=== PATIENT | male | born 1975 ===

== ENCOUNTER 2022-01-28 12:20 | Inpatient (IN) | payer SELFPAY ==
[2022-01-28] MEDS ORDERED: PIPERACIL/TAZOBACTA 4.5/NS 100 4.5 GM/100 ML VIAL IV ONE (23:07)
[2022-01-28] MEDS ORDERED: SODIUM CHLORIDE 0.9% 1000 ML IV SOLN IV ONE (23:07)
[2022-01-28] MEDS ORDERED: VANCOMYCIN 1,500 MG in SODIUM CHLORIDE 0.9% 500 ML 500 ML IV ONE (23:07)
--- NOTE | 2022-01-28 23:33 | Emergency Department Report ---
- General Chief complaint: Skin/Abscess/Foreign Body Stated complaint: BOIL BETWEEN LEGS Time Seen by Provider: 01/28/22 23:06 Source: patient Mode of arrival: Ambulatory Limitations: No Limitations - History of Present Illness Initial comments: 46-year-old diabetic male presents emerged department complaining of a 3-day history of progressively worsening right groin pain and swelling which is progressed down to his testicular region of unknown etiology pain has progressively worsened and become dull and throbbing worse with palpation and range of motion. Area is red and he has noticed some form of discharge in the right groin crease area close to the testicular sac border. Reports no fever, chills, sweats. No chest pain palpitations, no nausea, no vomiting. Reports h aving some similar episodes in the past but not to this extent Severity: moderate Quality: aching, dull Consistency: constant Improves with: none Worsens with: none Context: none Associated symptoms: denies other symptoms Treatments Prior to Arrival: none - Related Data Allergies Allergy/AdvReac Type Severity Reaction Status Date / Time No Known Allergies Allergy Verified 01/28/22 23:14 Abscess Boil HPI - HPI Chief Complaint: Skin/Abscess/Foreign Body Stated Complaint: BOIL BETWEEN LEGS Time Seen by Provider: 01/28/22 23:06 Allergies/Adverse Reactions: Allergies Allergy/AdvReac Type Severity Reaction Status Date / Time No Known Allergies Allergy Verified 01/28/22 23:14 ED Review of Systems ROS: Stated complaint: BOIL BETWEEN LEGS Other details as noted in HPI Comment: All other systems reviewed and negative ED Physical Exam - General Limitations: No Limitations General appearance: alert, in no apparent distress - Head Head exam: Present: atraumatic, normocephalic - Eye Eye exam: Present: normal appearance, PERRL, EOMI - ENT ENT exam: Present: mucous membranes moist - Neck Neck exam: Present: normal inspection - Respiratory Respiratory exam: Present: normal lung sounds bilaterally. Absent: respiratory distress - Cardiovascular Cardiovascular Exam: Present: regular rate, normal rhythm. Absent: systolic murmur, diastolic murmur, rubs, gallop - GI/Abdominal GI/Abdominal exam: Present: soft, tenderness, normal bowel sounds - Rectal Rectal exam: Present: deferred - exam: Present: testicular tenderness, scrotal swelling External exam: Present: erythema - Expanded Exam Expanded image: 1 - Cellulitis swelling tenderness to this region with mass palpated in the area of the inguinal and perineal region. There is AN OS or fistula near the right perineal region with more aggravating cellulitis. Possible early Joie's - Extremities Exam Extremities exam: Present: normal inspection - Back Exam Back exam: Present: normal inspection - Neurological Exam Neurological exam: Present: alert, oriented X3 - Psychiatric Psychiatric exam: Present: normal affect, normal mood - Skin Skin exam: Present: warm, dry, intact, normal color. Absent: rash ED Course Vital Signs 01/28/22 16:04 Temperature 98.1 F Pulse Rate 109 H Respiratory 18 Rate Blood Pressure 175/117 [Right] O2 Sat by Pulse 100 Oximetry - Consultations Consultation #1: 01/28/22 23:32 Case was discussed with attending Dr. Peñaloza who had [id number] with Mr. López and evaluated the wound with his hands he agrees with the plan to move forward with sepsis protocol and CT scan as well as antibiotic therapy Critical care attestation.: If time is entered above; I have spent that time in minutes in the direct care of this critically ill patient, excluding procedure time. ED Disposition Condition: Stable Referrals: PRIMARY CARE, [Primary Care Provider] - 3-5 Days
[2022-01-28] MEDS ORDERED: VANCOMYCIN PHARMACY TO DOSE IV SCH (23:45)
[2022-01-28 23:50] LABS: Hematocrit 42.9 % (35.5-45.6); Hemoglobin 14.9 gm/dl (11.8-15.2); Mean Corpuscular HGB Conc 35 % (32-34); Mean Corpuscular Volume 81 fl (84-94); Platelet Count 208 K/mm3 (140-440); Red Blood Count 5.29 M/mm3 (3.65-5.03); Red Cell Distribution Width 13.7 % (13.2-15.2)
[2022-01-29 00:07] LABS: Alanine Aminotransferase 11 units/L (7-56); Albumin 3.7 g/dL (3.9-5); BUN/Creatinine Ratio 13; Blood Urea Nitrogen 10 mg/dL (9-20); Hemolysis Index 6
[2022-01-29] MEDS: HYDROmorphone 1 MG/1 ML INJ IV PRN ×2 (00:12→06:28)
--- NOTE | 2022-01-29 00:51 | Cat Scan Report ---
CT ABDOMEN AND PELVIS WITH CONTRAST INDICATION / CLINICAL INFORMATION: Groin celluitis and swelling on RIGHT side. TECHNIQUE: Axial CT images were obtained through the abdomen and pelvis after 100 cc Omnipaque [address] scans at this location are performed using CT dose reduction for ALARA by means of automated exposure control. COMPARISON: None available. FINDINGS: LOWER CHEST: No significant abnormality. LIVER: Generalized steatosis without other significant abnormalities. GALLBLADDER: No significant abnormality. BILE DUCTS: No significant abnormality. PANCREAS: No significant abnormality. SPLEEN: No significant abnormality. ADRENALS: No significant abnormality. RIGHT KIDNEY/URETER: A simple cyst seen medially along the mid pole measures up to 9 mm. No other sig nificant abnormality. LEFT KIDNEY/URETER: There is a simple cyst located medially along the upper pole measuring up to 1.2 cm. No other significant abnormality. STOMACH/SMALL BOWEL: No significant abnormality. COLON: No significant abnormality. APPENDIX: No significant abnormality. PERITONEUM: No free fluid. No free air. No fluid collection. LYMPH NODES: Likely reactive right inguinal nodes are seen measuring up to 1.2 cm in short axis dimen alis on image 186 of series 2. No other significant adenopathy. VASCULATURE: No significant abnormality. URINARY BLADDER: No significant abnormality. REPRODUCTIVE ORGANS: Scrotal edema is noted with bilateral hydroceles. No other significant abnormali ty. ADDITIONAL FINDINGS: Moderate edema is seen along the right inguinal subcutaneous tissues extending i nto the scrotum and perineum without associated soft tissue gas or an organized fluid collection/absc ess. BONES: No acute findings. There is mild thoracolumbar spondylosis. IMPRESSION: 1. Right inguinal, scrotal and perineal cellulitis without identification of an associated complicati on. 2. Additional findings as above. Signer Name: Claudio Castro MD Signed: 01/29/2022 12:46 AM Workstation Name: [id number]
[2022-01-29 02:20] LABS: Band Neutrophils # (Manual) 0.4 K/mm3; Basophils % (Manual) 0 % (0.0-1.8); Eosinophils % (Manual) 0 % (0.0-4.3); RBC Morphology Normal; Total Cells Counted 100
[2022-01-29 02:21] LABS: Platelet Estimate Consistent w Auto
[2022-01-29] MEDS ORDERED: DEXTROSE 50% IN WATER (25GM) 50 ML SYRINGE IV PRN (03:18)
[2022-01-29] MEDS ORDERED: ONDANSETRON 4 MG/2 ML INJ IV PRN (03:18)
[2022-01-29] MEDS ORDERED: MORPHINE 4 MG/1 ML INJ IV PRN (03:18)
[2022-01-29] MEDS ORDERED: MAGNESIUM HYDROXIDE (MOM) ORAL LIQD UDC PO PRN (03:18)
[2022-01-29] MEDS ORDERED: SODIUM CHLORIDE 0.9% 1000 ML 1,000 ML IV SCH (03:30)
--- NOTE | 2022-01-29 03:36 | History and Physical Report ---
History of Present Illness Date of examination: 01/29/22 Date of admission: 01/29/2022 Chief complaint: Right groin pain History of present illness: 46-year-old male with known history of diabetes mellitus presenting to the emergency room today complaining of swelling redness and pain in the right groin which has been ongoing for the past 3 days. Pain is said to be dull and throbbing. He denies any fall and denies any injury to the groin. Patient denies any fever or chills, no chest pain or shortness of breath, no nausea vomiting and no abdominal pain. Patient admits to having similar episodes in the past but was not this severe. Work-up in the emergency room today, significant findings on the labs includes leukocytosis of 21.3. Blood glucose of 278. CT of the abdomen and pelvis reveals right inguinal, scrotal and perineal cellulitis without identification of an associated complication. Patient has been commenced on empiric IV antibiotics for cellulitis. Past History Past Medical History: diabetes Past Surgical History: No surgical history Social history: no significant social history Family history: no significant family history Medications and Allergies Allergies Allergy/AdvReac Type Severity Reaction Status Date / Time No Known Allergies Allergy Verified 01/28/22 23:14 Active Meds: Active Medications Acetaminophen (Acetaminophen 325 Mg Tab) 650 mg PO Q4H PRN PRN Reason: Pain MILD(1-3)/Fever >100.5/RODRIGUES Dextrose (Dextrose 50% In Water (25gm) 50 Ml Syringe) 50 ml IV Q30MIN PRN; Protocol PRN Reason: Hypoglycemia Hydromorphone HCl (Hydromorphone 1 Mg/1 Ml Inj) 0.25 mg IV Q4H PRN PRN Reason: Pain, Moderate (4-6) Last Admin: 01/29/22 00:12 Dose: 0.25 mg Sodium Chloride (Nacl 0.9% 1000 Ml) 1,000 mls @ 125 mls/hr IV DIRECT STEPHANIE Insulin Human Regular (Insulin Regular, Human 100 Units/1 Ml) 0 units SUB-Q ACHS STEPHANIE; Protocol Magnesium Hydroxide (Magnesium Hydroxide (Mom) Oral Liqd Udc) 30 ml PO Q4H PRN PRN Reason: Constipation Morphine Sulfate (Morphine 2 Mg/1 Ml Inj) 2 mg IV Q4H PRN PRN Reason: Pain, Moderate (4-6) Morphine Sulfate (Morphine 4 Mg/1 Ml Inj) 4 mg IV Q4H PRN PRN Reason: Pain , Severe (7-10) Ondansetron HCl (Ondansetron 4 Mg/2 Ml Inj) 4 mg IV Q8H PRN PRN Reason: Nausea And Vomiting Sodium Chloride (Sodium Chloride 0.9% 10 Ml Flush Syringe) 10 ml IV BID STEPHANIE Sodium Chloride (Sodium Chloride 0.9% 10 Ml Flush Syringe) 10 ml IV PRN PRN PRN Reason: LINE FLUSH Review of Systems Constitutional: no fever, no chills Ears, nose, mouth and throat: no nasal congestion, no sore throat Cardiovascular: no chest pain, no palpitations Respiratory: no cough, no shortness of breath Gastrointestinal: no abdominal pain, no nausea, no vomiting, no diarrhea Genitourinary Male: no dysuria, no hematuria, no flank pain, no nocturia Musculoskeletal: no neck pain, no low back pain Integumentary: no rash, no pruritis Neurological: no headaches, no confusion Psychiatric: no anxiety, no depression Endocrine: no polydipsia, no polyuria, no nocturia Exam - Constitutional Vitals: Temp Pulse Resp BP Pulse Ox 98.1 F 109 H 18 175/117 100 01/28/22 16:04 01/28/22 16:04 01/29/22 00:12 01/28/22 16:04 01/28/22 16:04 General appearance: Present: no acute distress, well-nourished - EENT Eyes: Present: PERRL, EOM intact. Absent: scleral icterus ENT: hearing intact, clear oral mucosa, dentition normal - Neck Neck: Present: supple, normal ROM - Respiratory Respiratory effort: normal Respiratory: bilateral: CTA - Cardiovascular Rhythm: regular Heart Sounds: Present: S1 & S2. Absent: gallop, systolic murmur, diastolic murmur, rub, click - Extremities Extremities: no ischemia, pulses intact, pulses symmetrical, No edema, normal temperature, normal color, Full ROM Peripheral Pulses: within normal limits - Abdominal General gastrointestinal: Present: soft, non-tender, non-distended, normal bowel sounds. Absent: mass Male genitourinary: Present: tender (Redness and Tenderness in right groin,mildly warm to torch.) - Integumentary Integumentary: Present: clear, warm, dry, normal turgor. Absent: rash - Musculoskeletal Musculoskeletal: strength equal bilaterally - Psychiatric Psychiatric: appropriate mood/affect, intact judgment & insight, memory intact, cooperative - Neurologic Neurologic: CNII-XII intact, no focal deficits, moves all extremities Results - Labs CBC & Chem 7: 01/28/22 23:18 01/28/22 23:18 Labs: Abnormal lab results 01/28/22 01/28/22 Range/Units 23:18 23:18 WBC 21.3 H (4.5-11.0) K/mm3 RBC 5.29 H (3.65-5.03) M/mm3 MCV 81 L (84-94) fl MCHC 35 H (32-34) % Seg Neuts % (Manual) 88.0 H (40.0-70.0) % Lymphocytes % (Manual) 6.0 L (13.4-35.0) % Seg Neutrophils # Man 18.7 H (1.8-7.7) K/mm3 Monocytes # (Manual) 0.9 H (0.0-0.8) K/mm3 Sodium 134 L (137-145) mmol/L Carbon Dioxide 19 L (22-30) mmol/L Glucose 278 H (75-100) mg/dL Alkaline Phosphatase 131 H (35-129) units/L Albumin 3.7 L (3.9-5) g/dL Assessment and Plan - Patient Problems (1) Cellulitis of right groin Current Visit: Yes Status: Acute Plan to address problem: Patient placed on empiric IV antibiotics. Will place consult to general surgery to evaluate for a possible developing abscess. (2) Diabetes mellitus Current Visit: Yes Status: Acute Plan to address problem: Patient placed on sliding scale insulin. Will monitor Accu-Cheks. (3) DVT prophylaxis Current Visit: Yes Status: Acute Plan to address problem: Patient placed on subcutaneous heparin. (4) Full code status Current Visit: Yes Status: Acute Plan to address problem: Patient is full code.
[2022-01-29] MEDS: hydrALAZINE 20 MG/1 ML INJ IV PRN ×2 (06:01→19:23)
[2022-01-29] MEDS: INSULIN REGULAR, HUMAN 100 UNITS/1 ML SUB-Q SCH ×5 (08:00→21:27)
--- NOTE | 2022-01-29 09:03 | Consultation ---
History of Present Illness Consult date: 01/29/22 Reason for consult: abdominal pain - History of present illness History of present illness: This is a 46-year-old gentleman with complaints of about a weeks duration of right groin pain and swelling. He denies any pre-existing swelling in the area he is not aware of any hernias in the area. Patient is admitted with cellulitis to the right scrotum right groin area there is a small open area in the crease between the scrotum and the thigh. Examination at this time failed to show a abscess in the subcutaneous tissue. He is very tender in this area however and a hernia with incarceration could be missed at this time. Recommend a CT scan abdomen pelvis we will continue to follow patient with you. Past History Past Medical History: diabetes Past Surgical History: No surgical history Social history: no significant social history Family history: no significant family history Medications and Allergies Allergies Allergy/AdvReac Type Severity Reaction Status Date / Time No Known Allergies Allergy Verified 01/28/22 23:14 Active Meds: Active Medications Acetaminophen (Acetaminophen 325 Mg Tab) 650 mg PO Q4H PRN PRN Reason: Pain MILD(1-3)/Fever >100.5/RODRIGUES Dextrose (Dextrose 50% In Water (25gm) 50 Ml Syringe) 50 ml IV Q30MIN PRN; Protocol PRN Reason: Hypoglycemia Heparin Sodium (Porcine) (Heparin 5,000 Unit/1 Ml Vial) 5,000 unit SUB-Q Q8HR STEPHANIE Hydralazine HCl (Hydralazine 20 Mg/1 Ml Inj) 10 mg IV Q4HR PRN PRN Reason: elevated blood pressure Last Admin: 01/29/22 06:01 Dose: 10 mg Hydromorphone HCl (Hydromorphone 1 Mg/1 Ml Inj) 0.25 mg IV Q4H PRN PRN Reason: Pain, Moderate (4-6) Last Admin: 01/29/22 06:28 Dose: 0.25 mg Sodium Chloride (Nacl 0.9% 1000 Ml) 1,000 mls @ 125 mls/hr IV DIRECT STEPHANIE Vancomycin HCl 1,500 mg/ (Sodium Chloride) 530 mls @ 333.333 mls/hr IV Q12H STEPHANIE Insulin Human Regular (Insulin Regular, Human 100 Units/1 Ml) 0 units SUB-Q ACHS STEPHANIE; Protocol Magnesium Hydroxide (Magnesium Hydroxide (Mom) Oral Liqd Udc) 30 ml PO Q4H PRN PRN Reason: Constipation Morphine Sulfate (Morphine 2 Mg/1 Ml Inj) 2 mg IV Q4H PRN PRN Reason: Pain, Moderate (4-6) Morphine Sulfate (Morphine 4 Mg/1 Ml Inj) 4 mg IV Q4H PRN PRN Reason: Pain , Severe (7-10) Ondansetron HCl (Ondansetron 4 Mg/2 Ml Inj) 4 mg IV Q8H PRN PRN Reason: Nausea And Vomiting Sodium Chloride (Sodium Chloride 0.9% 10 Ml Flush Syringe) 10 ml IV BID STEPHANIE Sodium Chloride (Sodium Chloride 0.9% 10 Ml Flush Syringe) 10 ml IV PRN PRN PRN Reason: LINE FLUSH Exam Vital Signs Temp Pulse Resp BP Pulse Ox 98.1 F 109 H 18 175/117 100 01/28/22 16:04 01/28/22 16:04 01/28/22 16:04 01/28/22 16:04 01/28/22 16:04 - General physical appearance Positive: well developed, no distress - Neck Positive: no masses, no bruits, trachea midline - Respiratory Positive: normal expansion - Cardiovascular Rhythm: regular - Extremities Extremities: no ischemia, No edema - Abdomen Abdomen: Present: soft, tender, other (his is a 46-year-old gentleman with complaints of about a weeks duration of right groin pain and swelling. He denies any pre-existing swelling in the area he is not aware of any hernias in the area.) Results - Labs 01/28/22 23:18 01/28/22 23:18 Abnormal lab results 01/28/22 01/28/22 Range/Units 23:18 23:18 WBC 21.3 H (4.5-11.0) K/mm3 RBC 5.29 H (3.65-5.03) M/mm3 MCV 81 L (84-94) fl MCHC 35 H (32-34) % Seg Neuts % (Manual) 88.0 H (40.0-70.0) % Lymphocytes % (Manual) 6.0 L (13.4-35.0) % Seg Neutrophils # Man 18.7 H (1.8-7.7) K/mm3 Monocytes # (Manual) 0.9 H (0.0-0.8) K/mm3 Sodium 134 L (137-145) mmol/L Carbon Dioxide 19 L (22-30) mmol/L Glucose 278 H (75-100) mg/dL Alkaline Phosphatase 131 H (35-129) units/L Albumin 3.7 L (3.9-5) g/dL Diabetes panel 01/28/22 Range/Units 23:18 Sodium 134 L (137-145) mmol/L Potassium 4.0 (3.6-5.0) mmol/L Chloride 98.1 (98-107) mmol/L Carbon Dioxide 19 L (22-30) mmol/L BUN 10 (9-20) mg/dL Creatinine 0.8 (0.8-1.3) mg/dL Glucose 278 H (75-100) mg/dL Calcium 9.0 (8.4-10.2) mg/dL AST 9 (5-40) units/L ALT 11 (7-56) units/L Alkaline Phosphatase 131 H (35-129) units/L Total Protein 6.7 (6.3-8.2) g/dL Albumin 3.7 L (3.9-5) g/dL Calcium panel 01/28/22 Range/Units 23:18 Calcium 9.0 (8.4-10.2) mg/dL Albumin 3.7 L (3.9-5) g/dL Pituitary panel 01/28/22 Range/Units 23:18 Sodium 134 L (137-145) mmol/L Potassium 4.0 (3.6-5.0) mmol/L Chloride 98.1 (98-107) mmol/L Carbon Dioxide 19 L (22-30) mmol/L BUN 10 (9-20) mg/dL Creatinine 0.8 (0.8-1.3) mg/dL Glucose 278 H (75-100) mg/dL Calcium 9.0 (8.4-10.2) mg/dL Adrenal panel 01/28/22 Range/Units 23:18 Sodium 134 L (137-145) mmol/L Potassium 4.0 (3.6-5.0) mmol/L Chloride 98.1 (98-107) mmol/L Carbon Dioxide 19 L (22-30) mmol/L BUN 10 (9-20) mg/dL Creatinine 0.8 (0.8-1.3) mg/dL Glucose 278 H (75-100) mg/dL Calcium 9.0 (8.4-10.2) mg/dL Total Bilirubin 0.70 (0.1-1.2) mg/dL AST 9 (5-40) units/L ALT 11 (7-56) units/L Alkaline Phosphatase 131 H (35-129) units/L Total Protein 6.7 (6.3-8.2) g/dL Albumin 3.7 L (3.9-5) g/dL Assessment and Plan his is a 46-year-old gentleman with complaints of about a weeks duration of right groin pain and swelling. He denies any pre-existing swelling in the area he is not aware of any hernias in the area. Patient is admitted with cellulitis to the right scrotum right groin area there is a small open area in the crease between the scrotum and the thigh. Examination at this time failed to show a abscess in the subcutaneous tissue. He is very tender in this area however and a hernia with incarceration could be missed at this time. Recommend a CT scan abdomen pelvis we will continue to follow patient with you.
--- NOTE | 2022-01-29 11:10 | Cat Scan Report ---
CT abdomen pelvis w con INDICATION / CLINICAL INFORMATION: possible right inguinal abscess vs hernia OMNI 300 100 ML. TECHNIQUE: Axial CT images were obtained through the abdomen and pelvis after 100 cc of Omnipaque [address] scans at this location are performed using CT dose reduction for ALARA by means of automated exposure control. COMPARISON: CT from earlier same day. FINDINGS: LOWER CHEST: No significant abnormality LIVER: Diffuse steatosis. No focal lesion. GALLBLADDER/BILIARY TREE: No significant abnormality PANCREAS: No significant abnormality SPLEEN: No significant abnormality ADRENALS: No significant abnormality RIGHT KIDNEY / URETER: No significant abnormality LEFT KIDNEY / URETER: Small cyst at the upper pole. No acute abnormality. No hydronephrosis. URINARY BLADDER: No significant abnormality REPRODUCTIVE ORGANS: Prostate is unremarkable. STOMACH / BOWEL: Small bowel is normal in caliber. Colonic diverticulosis without evidence of diverti culitis. The appendix is normal in caliber. LYMPH NODES: Enlarged reactive lymph nodes in the right inguinal region again noted. No new or increa sing adenopathy. VASCULATURE: No significant abnormality. OTHER: The inferior perineum is excluded from view. Moderate inflammatory soft tissue stranding is se en within the right inguinal region and right perineum. This is incompletely imaged on current study. No soft tissue gas. No inguinal hernia is identified. SKELETAL SYSTEM: No acute osseous findings. IMPRESSION: 1. The perineum and scrotum are partially excluded on this study. Cellulitis of the visualized right inguinal region and perineum appear unchanged from CT from earlier same day. No soft tissue gas or or ganized collection visualized. 2. No new abnormality. Signer Name: Andrea Moonye MD Signed: 01/29/2022 11:05 AM Workstation Name: [id number]
--- NOTE | 2022-01-29 11:40 | Progress Note ---
Assessment and Plan Assessment and plan: 46-year-old male with known history of diabetes mellitus presenting to the emergency room complaining of swelling redness and pain in the right groin which has been ongoing for the past 3 days [employer]ALOG [employer]IAN. Work-up in the emergency room revealed a leukocytosis of 21.3. Blood glucose of 278. CT of the abdomen and pelvis reveals right inguinal, scrotal and perineal cellulitis without identification of an associated complication. Patient has been commenced on empiric IV antibiotics for cellulitis. The patient was admitted with diagnosis below: Sepsis. Patient meets criteria given the leukocytosis, tachycardia and diagnosis of cellulitis right groin cellulitis Diabetes mellitus type 2, uncontrolled 01/29/2022. Continue with IV antibiotics and await ID consultation. Continue tight glycemic control to promote wound healing. Follow-up CT scan of the abdomen and pelvis per surgery recommendations History Interval history: No new issues overnight Hospitalist Physical - Constitutional Vitals: Temp Pulse Resp BP Pulse Ox 98.1 F 94 H 18 160/93 96 01/29/22 05:45 01/29/22 07:07 01/29/22 07:07 01/29/22 07:07 01/29/22 07:07 General appearance: Present: no acute distress, well-nourished - EENT Eyes: Present: PERRL, EOM intact ENT: hearing intact, clear oral mucosa, dentition normal - Neck Neck: Present: supple, normal ROM - Respiratory Respiratory effort: normal Respiratory: bilateral: CTA - Cardiovascular Rhythm: regular Heart Sounds: Present: S1 & S2. Absent: gallop, rub - Extremities Extremities: no ischemia, No edema, Full ROM - Abdominal General gastrointestinal: soft, non-tender, non-distended, normal bowel sounds - Integumentary Integumentary: Present: clear, warm, dry - Neurologic Neurologic: CNII-XII intact, moves all extremities Results - Labs CBC & Chem 7: 01/28/22 23:18 01/28/22 23:18 Labs: Laboratory Last Values WBC 21.3 K/mm3 (4.5-11.0) H 01/28/22 23:18 RBC 5.29 M/mm3 (3.65-5.03) H 01/28/22 23:18 Hgb 14.9 gm/dl (11.8-15.2) 01/28/22 23:18 Hct 42.9 % (35.5-45.6) 01/28/22 23:18 MCV 81 fl (84-94) L 01/28/22 23:18 MCH 28 pg (28-32) 01/28/22 23:18 MCHC 35 % (32-34) H 01/28/22 23:18 RDW 13.7 % (13.2-15.2) 01/28/22 23:18 Plt Count 208 K/mm3 (140-440) 01/28/22 23:18 Add Manual Diff Complete 01/28/22 23:18 Total Counted 100 01/28/22 23:18 Seg Neuts % (Manual) 88.0 % (40.0-70.0) H 01/28/22 23:18 Band Neutrophils % 2.0 % 01/28/22 23:18 Lymphocytes % (Manual) 6.0 % (13.4-35.0) L 01/28/22 23:18 Reactive Lymphs % (Man) 0 % 01/28/22 23:18 Monocytes % (Manual) 4.0 % (0.0-7.3) 01/28/22 23:18 Eosinophils % (Manual) 0 % (0.0-4.3) 01/28/22 23:18 Basophils % (Manual) 0 % (0.0-1.8) 01/28/22 23:18 Metamyelocytes % 0 % 01/28/22 23:18 Myelocytes % 0 % 01/28/22 23:18 Promyelocytes % 0 % 01/28/22 23:18 Blast Cells % 0 % 01/28/22 23:18 Nucleated RBC % Not Reportable 01/28/22 23:18 Seg Neutrophils # Man 18.7 K/mm3 (1.8-7.7) H 01/28/22 23:18 Band Neutrophils # 0.4 K/mm3 01/28/22 23:18 Lymphocytes # (Manual) 1.3 K/mm3 (1.2-5.4) 01/28/22 23:18 Abs React Lymphs (Man) 0.0 K/mm3 01/28/22 23:18 Monocytes # (Manual) 0.9 K/mm3 (0.0-0.8) H 01/28/22 23:18 Eosinophils # (Manual) 0.0 K/mm3 (0.0-0.4) 01/28/22 23:18 Basophils # (Manual) 0.0 K/mm3 (0.0-0.1) 01/28/22 23:18 Metamyelocytes # 0.0 K/mm3 01/28/22 23:18 Myelocytes # 0.0 K/mm3 01/28/22 23:18 Promyelocytes # 0.0 K/mm3 01/28/22 23:18 Blast Cells # 0.0 K/mm3 01/28/22 23:18 WBC Morphology Not Reportable 01/28/22 23:18 Hypersegmented Neuts Not Reportable 01/28/22 23:18 Hyposegmented Neuts Not Reportable 01/28/22 23:18 Hypogranular Neuts Not Reportable 01/28/22 23:18 Smudge Cells Not Reportable 01/28/22 23:18 Toxic Granulation Not Reportable 01/28/22 23:18 Toxic Vacuolation Not Reportable 01/28/22 23:18 Dohle Bodies Not Reportable 01/28/22 23:18 Pelger-Huet Anomaly Not Reportable 01/28/22 23:18 Елена Rods Not Reportable 01/28/22 23:18 Platelet Estimate Consistent w auto 01/28/22 23:18 Clumped Platelets Not Reportable 01/28/22 23:18 Plt Clumps, EDTA Not Reportable 01/28/22 23:18 Large Platelets Not Reportable 01/28/22 23:18 Giant Platelets Not Reportable 01/28/22 23:18 Platelet Satelliting Not Reportable 01/28/22 23:18 Plt Morphology Comment Not Reportable 01/28/22 23:18 RBC Morphology Normal 01/28/22 23:18 Dimorphic RBCs Not Reportable 01/28/22 23:18 Polychromasia Not Reportable 01/28/22 23:18 Hypochromasia Not Reportable 01/28/22 23:18 Poikilocytosis Not Reportable 01/28/22 23:18 Anisocytosis Not Reportable 01/28/22 23:18 Microcytosis Not Reportable 01/28/22 23:18 Macrocytosis Not Reportable 01/28/22 23:18 Spherocytes Not Reportable 01/28/22 23:18 Pappenheimer Bodies Not Reportable 01/28/22 23:18 Sickle Cells Not Reportable 01/28/22 23:18 Target Cells Not Reportable 01/28/22 23:18 Tear Drop Cells Not Reportable 01/28/22 23:18 Ovalocytes Not Reportable 01/28/22 23:18 Helmet Cells Not Reportable 01/28/22 23:18 Huerta-Gregory Bodies Not Reportable 01/28/22 23:18 Napoleon Rings Not Reportable 01/28/22 23:18 Eden Cells Not Reportable 01/28/22 23:18 Bite Cells Not Reportable 01/28/22 23:18 Crenated Cell Not Reportable 01/28/22 23:18 Elliptocytes Not Reportable 01/28/22 23:18 Acanthocytes (Spur) Not Reportable 01/28/22 23:18 Rouleaux Not Reportable 01/28/22 23:18 Hemoglobin C Crystals Not Reportable 01/28/22 23:18 Schistocytes Not Reportable 01/28/22 23:18 Malaria parasites Not Reportable 01/28/22 23:18 Rod Bodies Not Reportable 01/28/22 23:18 Hem Pathologist Commnt No 01/28/22 23:18 Sodium 134 mmol/L (137-145) L 01/28/22 23:18 Potassium 4.0 mmol/L (3.6-5.0) 01/28/22 23:18 Chloride 98.1 mmol/L (98-107) 01/28/22 23:18 Carbon Dioxide 19 mmol/L (22-30) L 01/28/22 23:18 Anion Gap 21 mmol/L 01/28/22 23:18 BUN 10 mg/dL (9-20) 01/28/22 23:18 Creatinine 0.8 mg/dL (0.8-1.3) 01/28/22 23:18 Estimated GFR > 60 ml/min 01/28/22 23:18 BUN/Creatinine Ratio 13 % 01/28/22 23:18 Glucose 278 mg/dL (75-100) H 01/28/22 23:18 Lactic Acid 1.40 mmol/L (0.7-2.0) 01/29/22 02:37 Calcium 9.0 mg/dL (8.4-10.2) 01/28/22 23:18 Total Bilirubin 0.70 mg/dL (0.1-1.2) 01/28/22 23:18 AST 9 units/L (5-40) 01/28/22 23:18 ALT 11 units/L (7-56) 01/28/22 23:18 Alkaline Phosphatase 131 units/L (35-129) H 01/28/22 23:18 Total Protein 6.7 g/dL (6.3-8.2) 01/28/22 23:18 Albumin 3.7 g/dL (3.9-5) L 01/28/22 23:18 Albumin/Globulin Ratio 1.2 % 01/28/22 23:18 Microbiology: Microbiology 01/28/22 23:18 Peripheral/Venous Blood Culture - Preliminary Culture in Progress 01/28/22 23:18 Peripheral/Venous Blood Culture - Preliminary Culture in Progress [place]/IV: Voiding Method Urinal Active Medications - Current Medications Current Medications: Generic Name Dose Route Start Last Admin Trade Name Freq PRN Reason Stop Dose Admin Acetaminophen 650 mg 01/29/22 03:18 Acetaminophen 325 Mg Tab PO Q4H PRN Pain MILD(1-3)/Fever >100.5/RODRIGUES Dextrose 50 ml 01/29/22 03:18 Dextrose 50% In Water (25gm) 50 Ml Syringe IV Q30MIN PRN Hypoglycemia Protocol Heparin Sodium (Porcine) 5,000 unit 01/29/22 14:00 Heparin 5,000 Unit/1 Ml Vial SUB-Q Q8HR [facility] Hydralazine HCl 10 mg 01/29/22 05:48 01/29/22 06:01 Hydralazine 20 Mg/1 Ml Inj IV 10 mg Q4HR PRN Administration elevated blood pressure Hydromorphone HCl 0.25 mg 01/28/22 23:07 01/29/22 06:28 Hydromorphone 1 Mg/1 Ml Inj IV 0.25 mg Q4H PRN Administration Pain, Moderate (4-6) Sodium Chloride 1,000 mls @ 125 mls/hr 01/29/22 03:30 Nacl 0.9% 1000 Ml IV DIRECT [facility] Vancomycin HCl 1,500 mg/ 530 mls @ 333.333 mls/hr 01/29/22 12:00 Sodium Chloride IV Q12H [facility] Insulin Human Regular 0 units 01/29/22 07:30 Insulin Regular, Human 100 Units/1 Ml SUB-Q ACHS STEPHANIE Protocol Magnesium Hydroxide 30 ml 01/29/22 03:18 Magnesium Hydroxide (Mom) Oral Liqd Udc PO Q4H PRN Constipation Morphine Sulfate 2 mg 01/29/22 03:18 Morphine 2 Mg/1 Ml Inj IV Q4H PRN Pain, Moderate (4-6) Morphine Sulfate 4 mg 01/29/22 03:18 Morphine 4 Mg/1 Ml Inj IV Q4H PRN Pain , Severe (7-10) Ondansetron HCl 4 mg 01/29/22 03:18 Ondansetron 4 Mg/2 Ml Inj IV Q8H PRN Nausea And Vomiting Sodium Chloride 10 ml 01/29/22 10:00 Sodium Chloride 0.9% 10 Ml Flush Syringe IV BID STEPHANIE Sodium Chloride 10 ml 01/29/22 03:18 Sodium Chloride 0.9% 10 Ml Flush Syringe IV PRN PRN LINE FLUSH Nutrition/Malnutrition Assess - Dietary Evaluation Nutrition/Malnutrition Findings: Nutrition Notes Start: 01/29/22 10:39 Freq: Status: Active Protocol: Document 01/29/22 10:39 [facility] (Rec: 01/29/22 10:45 [facility] [id number]) Nutrition Notes Need for Assessment generated from: MD Order,Education Initial or Follow up Brief Note Current Diagnosis Diabetes Other Pertinent Diagnosis Cellulitis of (R) groin Current Diet Cardiac/Consistent CHO Height 5 ft 6 in Weight 90.7 kg [place] Body Weight (kg) 64.54 BMI 32.3 Weight Status Obese Subjective/Other Information RD consulted for diet education. Pt's BP was 161/ 104 upon admission. Pt did not report any S/S of hyperglycemia upon admission. General surgery recommends CT scan of abdomen/pelvis to r/o hernia with incarceration; no abscess detected. Burn Absent Trauma Absent Minimum of two criteria No Is patient on ventilator? No Is Patient Ambulatory and/or Out of Bed Yes REE-([place]. Jeor-ambulatory/OOB) [ 2235.675 NUTR.[id number]] Kcal/Kg value to use for calculation 20 Approximate Energy Requirements Using 1814 kcal/Kg Calculation Used for Recommendations Kcal/kg Additional Notes Pro needs 0.8-1g/kg adjBW: 62- 78g/day Fluid needs 1ml/kcal Nutrition Intervention Follow-Up By: 02/01/22 Additional Comments F/U: intakes, diet education needs (BG and BP control)
[2022-01-29] MEDS: VANCOMYCIN 1,500 MG in SODIUM CHLORIDE 0.9% 500 ML 500 ML IV SCH (12:01)
[2022-01-29] MEDS: HEPARIN 5,000 UNIT/1 ML VIAL SUB-Q SCH ×2 (15:54→21:27)
--- NOTE | 2022-01-29 16:08 | Consultation ---
History of Present Illness - Reason for Consult Consult date: 01/29/22 - History of Present Illness 46-year-old man past medical history diabetes presented to hospital complaining of swelling and redness of the right groin. This began approximate 3 days prior to admission and has been worsening since onset. He otherwise denies any trauma to the area. Afebrile since admission with a white count of 21.3. Normal renal function. Tachycardic. Blood cultures no growth so far. Currently on vancomycin. Imaging personally reviewed: CT abdomen pelvis: Cellulitis of the right inguinal region and perineum. No soft tissue gas. Review of Systems: Bold if positive, otherwise negative General: fevers, chills, rigors HEENT: visual disturbance, diplopia, eye pain Respiratory: cough, sputum, hemoptysis, shortness of breath Cardiovascular: chest pain, syncope Gastrointestinal: nausea, vomiting, diarrhea, abdominal pain Genitourinary: dysuria, hematuria, flank pain Musculoskeletal: neck pain, back pain, joint pain, edema Neurologic: headaches, seizures Hematologic: easy bruising or bleeding Endocrine: night sweats, acute weight loss Skin: rash, jaundice, redness Psychiatric: suicidal, homicidal ideation Past History Past Medical History: diabetes Past Surgical History: No surgical history Social history: no significant social history. denies: smoking Family history: hypertension Medications and Allergies Allergies Allergy/AdvReac Type Severity Reaction Status Date / Time No Known Allergies Allergy Verified 01/28/22 23:14 Active Meds: Active Medications Acetaminophen (Acetaminophen 325 Mg Tab) 650 mg PO Q4H PRN PRN Reason: Pain MILD(1-3)/Fever >100.5/RODRIGUES Dextrose (Dextrose 50% In Water (25gm) 50 Ml Syringe) 50 ml IV Q30MIN PRN; Protocol PRN Reason: Hypoglycemia Heparin Sodium (Porcine) (Heparin 5,000 Unit/1 Ml Vial) 5,000 unit SUB-Q Q8HR STEPHANIE Last Admin: 01/29/22 15:54 Dose: 5,000 unit Hydralazine HCl (Hydralazine 20 Mg/1 Ml Inj) 10 mg IV Q4HR PRN PRN Reason: elevated blood pressure Last Admin: 01/29/22 06:01 Dose: 10 mg Hydromorphone HCl (Hydromorphone 1 Mg/1 Ml Inj) 0.25 mg IV Q4H PRN PRN Reason: Pain, Moderate (4-6) Last Admin: 01/29/22 06:28 Dose: 0.25 mg Sodium Chloride (Nacl 0.9% 1000 Ml) 1,000 mls @ 125 mls/hr IV DIRECT STEPHANIE Vancomycin HCl 1,500 mg/ (Sodium Chloride) 530 mls @ 333.333 mls/hr IV Q12H [facility] Last Admin: 01/29/22 12:01 Dose: 333.333 mls/hr Insulin Human Regular (Insulin Regular, Human 100 Units/1 Ml) 0 units SUB-Q ACHS [facility]; Protocol Last Admin: 01/29/22 12:11 Dose: 2 units Magnesium Hydroxide (Magnesium Hydroxide (Mom) Oral Liqd Udc) 30 ml PO Q4H PRN PRN Reason: Constipation Morphine Sulfate (Morphine 2 Mg/1 Ml Inj) 2 mg IV Q4H PRN PRN Reason: Pain, Moderate (4-6) Morphine Sulfate (Morphine 4 Mg/1 Ml Inj) 4 mg IV Q4H PRN PRN Reason: Pain , Severe (7-10) Ondansetron HCl (Ondansetron 4 Mg/2 Ml Inj) 4 mg IV Q8H PRN PRN Reason: Nausea And Vomiting Sodium Chloride (Sodium Chloride 0.9% 10 Ml Flush Syringe) 10 ml IV BID [facility] Last Admin: 01/29/22 12:02 Dose: 10 ml Sodium Chloride (Sodium Chloride 0.9% 10 Ml Flush Syringe) 10 ml IV PRN PRN PRN Reason: LINE FLUSH Physical Examination - Physical Exam Narrative exam: Physical Exam: Constitutional: Alert, cooperative. No acute distress Head, Ears, Nose: Normocephalic, atraumatic. External ears, nose normal Eyes: Conjunctivae/corneas clear. No icterus. No ptosis. Neck: Supple, no meningeal signs Oral: dentition fair, no thrush Cardiovascular: S1, S2 normal. Respiratory: Good air entry, clear to auscultation bilaterally GI: Soft, non-tender; bowel sounds normal. No peritoneal signs. Musculoskeletal: Right groin scrotum cellulitis Skin: No rash or abscess Hem/Lymphatic: No palpable cervical or supraclavicular nodes. No lymphangitis Psych: Mood ok. Affect normal Neurological: Awake, alert, oriented. No gross abnormality - Constitutional Vitals: Vital Signs Temp Pulse Resp BP Pulse Ox 98.1 F 94 H 18 160/93 96 01/29/22 05:45 01/29/22 07:07 01/29/22 07:07 01/29/22 07:07 01/29/22 07:07 Temperature -Last 24 Hours Temperature 98.1 F Temperature 98.1 F Results - Labs CBC & Chem 7: 01/28/22 23:18 01/28/22 23:18 Labs: Abnormal lab results 01/28/22 01/28/22 01/29/22 Range/Units 23:18 23:18 10:01 WBC 21.3 H (4.5-11.0) K/mm3 RBC 5.29 H (3.65-5.03) M/mm3 MCV 81 L (84-94) fl MCHC 35 H (32-34) % Seg Neuts % (Manual) 88.0 H (40.0-70.0) % Lymphocytes % (Manual) 6.0 L (13.4-35.0) % Seg Neutrophils # Man 18.7 H (1.8-7.7) K/mm3 Monocytes # (Manual) 0.9 H (0.0-0.8) K/mm3 Sodium 134 L (137-145) mmol/L Carbon Dioxide 19 L (22-30) mmol/L Glucose 278 H (75-100) mg/dL POC Glucose 166 H (70-105) mg/dL Alkaline Phosphatase 131 H (35-129) units/L Albumin 3.7 L (3.9-5) g/dL 01/29/22 Range/Units 12:48 WBC (4.5-11.0) K/mm3 RBC (3.65-5.03) M/mm3 MCV (84-94) fl MCHC (32-34) % Seg Neuts % (Manual) (40.0-70.0) % Lymphocytes % (Manual) (13.4-35.0) % Seg Neutrophils # Man (1.8-7.7) K/mm3 Monocytes # (Manual) (0.0-0.8) K/mm3 Sodium (137-145) mmol/L Carbon Dioxide (22-30) mmol/L Glucose (75-100) mg/dL POC Glucose 188 H (70-105) mg/dL Alkaline Phosphatase (35-129) units/L Albumin (3.9-5) g/dL Assessment and Plan Cultures: Blood culture no growth so far A/P: 38-year-old man past medical history diabetes, obesity now with: #Acute sepsis: Present with tachycardia and leukocytosis. Secondary to right groin cellulitis #Right groin cellulitis: No evidence of gas or abscess on CT. Continue treatment for cellulitis. If no improvement may need reevaluation with CT to evaluate for development of abscess. #Diabetes: tight glycemic control for best outcomes. #Obesity Recs: -Continue vancomycin goal trough 10-20 -Trend white count -Follow-up cultures -If no improvement in white count or symptoms, may need repeat CT next couple days Thank you for the consult, we will continue to follow. MD Ilir Britton [facility] ([facility] O: [phone] F: [phone]
--- NOTE | 2022-01-29 17:52 | Ultrasound Report ---
Testicular ultrasound INDICATION: Enlarged scrotum on the right FINDINGS: Right testicle measures 4.3 x 2.1 x 2.8 cm. Normal color Doppler flow. Left testicle measur es 4.5 x 2.1 x 2.9 cm. Normal color Doppler flow. Epididymis appears normal. Small amount of fluid an d edema seen in bilateral inguinal regions and scrotum is edematous. Testicles are heterogeneous. IMPRESSION: Mild scrotal edema and small amount of free fluid in the scrotum. Testicles are heterogeneous with no rmal color Doppler flow. Mildly prominent nodes in the right groin. Signer Name: Christiano Arevalo MD Signed: 01/29/2022 5:47 PM Workstation Name: [id number]
[2022-01-29] MEDS: ACETAMINOPHEN 325 MG TAB PO PRN (21:26)
[2022-01-30] MEDS: VANCOMYCIN 1,500 MG in SODIUM CHLORIDE 0.9% 500 ML 500 ML IV SCH ×2 (00:16→13:22)
[2022-01-30] MEDS: HEPARIN 5,000 UNIT/1 ML VIAL SUB-Q SCH ×3 (05:23→22:31)
[2022-01-30 05:51] LABS: Basophils # (Auto) 0.1 K/mm3 (0.0-0.1); Basophils % (Auto) 0.5 % (0.0-1.8); Eosinophils # (Auto) 0.1 K/mm3 (0.0-0.4); Eosinophils % (Auto) 1.1 % (0.0-4.3); Hematocrit 41.9 % (35.5-45.6); Lymphocytes # (Auto) 1.5 K/mm3 (1.2-5.4); Lymphocytes % (Auto) 11.7 % (13.4-35.0); Mean Corpuscular HGB Conc 33 % (32-34); Mean Corpuscular Volume 82 fl (84-94); Monocytes # (Auto) 1.1 K/mm3 (0.0-0.8); Monocytes % (Auto) 8.9 % (0.0-7.3); Platelet Count 252 K/mm3 (140-440); Red Blood Count 5.14 M/mm3 (3.65-5.03); Red Cell Distribution Width 13.3 % (13.2-15.2)
[2022-01-30 06:06] LABS: Blood Urea Nitrogen 9 mg/dL (9-20); Calcium 8.7 mg/dL (8.4-10.2); Hemolysis Index 2
[2022-01-30 06:17] LABS: BUN/Creatinine Ratio 13
[2022-01-30] MEDS: MORPHINE 2 MG/1 ML INJ IV PRN (09:50)
[2022-01-30] MEDS: INSULIN REGULAR, HUMAN 100 UNITS/1 ML SUB-Q SCH ×4 (09:52→22:31)
--- NOTE | 2022-01-30 10:13 | Progress Note ---
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 Work-up in the emergency room revealed a leukocytosis of 21.3. Blood glucose of 278. CT of the abdomen and pelvis reveals right inguinal, scrotal and perineal cellulitis without identification of an associated complication. Patient has been commenced on empiric IV antibiotics for cellulitis. The patient was admitted with diagnosis below: Sepsis. Patient meets criteria given the leukocytosis, tachycardia and diagnosis of cellulitis right groin cellulitis Diabetes mellitus type 2, uncontrolled Obesity 01/29/2022. Continue with IV antibiotics and await ID consultation. Continue tight glycemic control to promote wound healing. Follow-up CT scan of the abdomen and pelvis per surgery recommendations 01/30/2022. Continue vancomycin per ID recommendations. We will follow-up culture results. Testicular ultrasound shows mild scrotal edema and small amount of free fluid. Repeat CT scan shows no new changes History Interval history: No new issues overnight Hospitalist Physical - Constitutional Vitals: Temp Pulse Resp BP Pulse Ox 99.3 F 127 H 20 170/99 96 01/29/22 20:33 01/29/22 20:33 01/29/22 20:33 01/29/22 20:33 01/30/22 08:15 General appearance: Present: no acute distress, well-nourished - EENT Eyes: Present: PERRL, EOM intact ENT: hearing intact, clear oral mucosa, dentition normal - Neck Neck: Present: supple, normal ROM - Respiratory Respiratory effort: normal Respiratory: bilateral: CTA - Cardiovascular Rhythm: regular Heart Sounds: Present: S1 & S2. Absent: gallop, rub - Extremities Extremities: no ischemia, No edema, Full ROM - Abdominal General gastrointestinal: soft, non-tender, non-distended, normal bowel sounds - Integumentary Integumentary: Present: clear, warm, dry - Neurologic Neurologic: CNII-XII intact, moves all extremities Results - Labs CBC & Chem 7: 01/30/22 04:49 01/30/22 04:49 Labs: Laboratory Last Values WBC 12.4 K/mm3 (4.5-11.0) H 01/30/22 04:49 RBC 5.14 M/mm3 (3.65-5.03) H 01/30/22 04:49 Hgb 14.0 gm/dl (11.8-15.2) 01/30/22 04:49 Hct 41.9 % (35.5-45.6) 01/30/22 04:49 MCV 82 fl (84-94) L 01/30/22 04:49 MCH 27 pg (28-32) L 01/30/22 04:49 MCHC 33 % (32-34) 01/30/22 04:49 RDW 13.3 % (13.2-15.2) 01/30/22 04:49 Plt Count 252 K/mm3 (140-440) 01/30/22 04:49 Lymph % (Auto) 11.7 % (13.4-35.0) L 01/30/22 04:49 Stark % (Auto) 8.9 % (0.0-7.3) H 01/30/22 04:49 Eos % (Auto) 1.1 % (0.0-4.3) 01/30/22 04:49 Baso % (Auto) 0.5 % (0.0-1.8) 01/30/22 04:49 Lymph # (Auto) 1.5 K/mm3 (1.2-5.4) 01/30/22 04:49 [place] # (Auto) 1.1 K/mm3 (0.0-0.8) H 01/30/22 04:49 Eos # (Auto) 0.1 K/mm3 (0.0-0.4) 01/30/22 04:49 Baso # (Auto) 0.1 K/mm3 (0.0-0.1) 01/30/22 04:49 Add Manual Diff Complete 01/28/22 23:18 Total Counted 100 01/28/22 23:18 Seg Neutrophils % 77.8 % (40.0-70.0) H 01/30/22 04:49 Seg Neuts % (Manual) 88.0 % (40.0-70.0) H 01/28/22 23:18 Band Neutrophils % 2.0 % 01/28/22 23:18 Lymphocytes % (Manual) 6.0 % (13.4-35.0) L 01/28/22 23:18 Reactive Lymphs % (Man) 0 % 01/28/22 23:18 Monocytes % (Manual) 4.0 % (0.0-7.3) 01/28/22 23:18 Eosinophils % (Manual) 0 % (0.0-4.3) 01/28/22 23:18 Basophils % (Manual) 0 % (0.0-1.8) 01/28/22 23:18 Metamyelocytes % 0 % 01/28/22 23:18 Myelocytes % 0 % 01/28/22 23:18 Promyelocytes % 0 % 01/28/22 23:18 Blast Cells % 0 % 01/28/22 23:18 Nucleated RBC % Not Reportable 01/28/22 23:18 Seg Neutrophils # 9.6 K/mm3 (1.8-7.7) H 01/30/22 04:49 Seg Neutrophils # Man 18.7 K/mm3 (1.8-7.7) H 01/28/22 23:18 Band Neutrophils # 0.4 K/mm3 01/28/22 23:18 Lymphocytes # (Manual) 1.3 K/mm3 (1.2-5.4) 01/28/22 23:18 Abs React Lymphs (Man) 0.0 K/mm3 01/28/22 23:18 Monocytes # (Manual) 0.9 K/mm3 (0.0-0.8) H 01/28/22 23:18 Eosinophils # (Manual) 0.0 K/mm3 (0.0-0.4) 01/28/22 23:18 Basophils # (Manual) 0.0 K/mm3 (0.0-0.1) 01/28/22 23:18 Metamyelocytes # 0.0 K/mm3 01/28/22 23:18 Myelocytes # 0.0 K/mm3 01/28/22 23:18 Promyelocytes # 0.0 K/mm3 01/28/22 23:18 Blast Cells # 0.0 K/mm3 01/28/22 23:18 WBC Morphology Not Reportable 01/28/22 23:18 Hypersegmented Neuts Not Reportable 01/28/22 23:18 Hyposegmented Neuts Not Reportable 01/28/22 23:18 Hypogranular Neuts Not Reportable 01/28/22 23:18 Smudge Cells Not Reportable 01/28/22 23:18 Toxic Granulation Not Reportable 01/28/22 23:18 Toxic Vacuolation Not Reportable 01/28/22 23:18 Dohle Bodies Not Reportable 01/28/22 23:18 Pelger-Huet Anomaly Not Reportable 01/28/22 23:18 Елена Rods Not Reportable 01/28/22 23:18 Platelet Estimate Consistent w auto 01/28/22 23:18 Clumped Platelets Not Reportable 01/28/22 23:18 Plt Clumps, EDTA Not Reportable 01/28/22 23:18 Large Platelets Not Reportable 01/28/22 23:18 Giant Platelets Not Reportable 01/28/22 23:18 Platelet Satelliting Not Reportable 01/28/22 23:18 Plt Morphology Comment Not Reportable 01/28/22 23:18 RBC Morphology Normal 01/28/22 23:18 Dimorphic RBCs Not Reportable 01/28/22 23:18 Polychromasia Not Reportable 01/28/22 23:18 Hypochromasia Not Reportable 01/28/22 23:18 Poikilocytosis Not Reportable 01/28/22 23:18 Anisocytosis Not Reportable 01/28/22 23:18 Microcytosis Not Reportable 01/28/22 23:18 Macrocytosis Not Reportable 01/28/22 23:18 Spherocytes Not Reportable 01/28/22 23:18 Pappenheimer Bodies Not Reportable 01/28/22 23:18 Sickle Cells Not Reportable 01/28/22 23:18 Target Cells Not Reportable 01/28/22 23:18 Tear Drop Cells Not Reportable 01/28/22 23:18 Ovalocytes Not Reportable 01/28/22 23:18 Helmet Cells Not Reportable 01/28/22 23:18 [place] Bodies Not Reportable 01/28/22 23:18 [place] Rings Not Reportable 01/28/22 23:18 [place]iel Cells Not Reportable 01/28/22 23:18 Bite Cells Not Reportable 01/28/22 23:18 Crenated Cell Not Reportable 01/28/22 23:18 Elliptocytes Not Reportable 01/28/22 23:18 Acanthocytes (Spur) Not Reportable 01/28/22 23:18 Rouleaux Not Reportable 01/28/22 23:18 Hemoglobin C Crystals Not Reportable 01/28/22 23:18 Schistocytes Not Reportable 01/28/22 23:18 Malaria parasites Not Reportable 01/28/22 23:18 Rod Bodies Not Reportable 01/28/22 23:18 Hem Pathologist Commnt No 01/28/22 23:18 Sodium 137 mmol/L (137-145) 01/30/22 04:49 Potassium 3.6 mmol/L (3.6-5.0) 01/30/22 04:49 Chloride 102.3 mmol/L (98-107) 01/30/22 04:49 Carbon Dioxide 20 mmol/L (22-30) L 01/30/22 04:49 Anion Gap 18 mmol/L 01/30/22 04:49 BUN 9 mg/dL (9-20) 01/30/22 04:49 Creatinine 0.7 mg/dL (0.8-1.3) L 01/30/22 04:49 Estimated GFR > 60 ml/min 01/30/22 04:49 BUN/Creatinine Ratio 13 % 01/30/22 04:49 Glucose 197 mg/dL (75-100) H 01/30/22 04:49 POC Glucose 199 mg/dL (70-105) H 01/30/22 07:14 Lactic Acid 1.40 mmol/L (0.7-2.0) 01/29/22 02:37 Calcium 8.7 mg/dL (8.4-10.2) 01/30/22 04:49 Total Bilirubin 0.70 mg/dL (0.1-1.2) 01/28/22 23:18 AST 9 units/L (5-40) 01/28/22 23:18 ALT 11 units/L (7-56) 01/28/22 23:18 Alkaline Phosphatase 131 units/L (35-129) H 01/28/22 23:18 Total Protein 6.7 g/dL (6.3-8.2) 01/28/22 23:18 Albumin 3.7 g/dL (3.9-5) L 01/28/22 23:18 Albumin/Globulin Ratio 1.2 % 01/28/22 23:18 Microbiology: Microbiology 01/28/22 23:18 Peripheral/Venous Blood Culture - Preliminary NO GROWTH AFTER 24 HOURS 01/28/22 23:18 Peripheral/Venous Blood Culture - Preliminary NO GROWTH AFTER 24 HOURS Caldera/IV: Voiding Method Urinal Active Medications - Current Medications Current Medications: Generic Name Dose Route Start Last Admin Trade Name Freq PRN Reason Stop Dose Admin Acetaminophen 650 mg 01/29/22 03:18 01/29/22 21:26 Acetaminophen 325 Mg Tab PO 650 mg Q4H PRN Administration Pain MILD(1-3)/Fever >100.5/RODRIGUES Dextrose 50 ml 01/29/22 03:18 Dextrose 50% In Water (25gm) 50 Ml Syringe IV Q30MIN PRN Hypoglycemia Protocol Heparin Sodium (Porcine) 5,000 unit 01/29/22 14:00 01/30/22 05:23 Heparin 5,000 Unit/1 Ml Vial SUB-Q 5,000 unit Q8HR STEPHANIE Administration Hydralazine HCl 10 mg 01/29/22 05:48 01/29/22 19:23 Hydralazine 20 Mg/1 Ml Inj IV 10 mg Q4HR PRN Administration elevated blood pressure Hydromorphone HCl 0.25 mg 01/28/22 23:07 01/29/22 06:28 Hydromorphone 1 Mg/1 Ml Inj IV 0.25 mg Q4H PRN Administration Pain, Moderate (4-6) Sodium Chloride 1,000 mls @ 125 mls/hr 01/29/22 03:30 Nacl 0.9% 1000 Ml IV DIRECT STEPHANIE Vancomycin HCl 1,500 mg/ 530 mls @ 333.333 mls/hr 01/29/22 12:00 01/30/22 00:16 Sodium Chloride IV 333.333 mls/hr Q12H STEPHANIE Administration Insulin Human Regular 0 units 01/29/22 07:30 01/30/22 09:52 Insulin Regular, Human 100 Units/1 Ml SUB-Q 2 units ACHS STEPHANIE Administration Protocol Magnesium Hydroxide 30 ml 01/29/22 03:18 Magnesium Hydroxide (Mom) Oral Liqd Udc PO Q4H PRN Constipation Morphine Sulfate 2 mg 01/29/22 03:18 01/30/22 09:50 Morphine 2 Mg/1 Ml Inj IV 2 mg Q4H PRN Administration Pain, Moderate (4-6) Morphine Sulfate 4 mg 01/29/22 03:18 Morphine 4 Mg/1 Ml Inj IV Q4H PRN Pain , Severe (7-10) Ondansetron HCl 4 mg 01/29/22 03:18 Ondansetron 4 Mg/2 Ml Inj IV Q8H PRN Nausea And Vomiting Sodium Chloride 10 ml 01/29/22 10:00 01/30/22 09:50 Sodium Chloride 0.9% 10 Ml Flush Syringe IV 10 ml BID STEPHANIE Administration Sodium Chloride 10 ml 01/29/22 03:18 Sodium Chloride 0.9% 10 Ml Flush Syringe IV PRN PRN LINE FLUSH Nutrition/Malnutrition Assess - Dietary Evaluation Nutrition/Malnutrition Findings: Nutrition Notes Start: 01/29/22 10:39 Freq: Status: Active Protocol: Document 01/29/22 10:39 ROSENDO (Rec: 01/29/22 10:45 MAHE [id number]) Nutrition Notes Need for Assessment generated from: MD Order,Education Initial or Follow up Brief Note Current Diagnosis Diabetes Other Pertinent Diagnosis Cellulitis of (R) groin Current Diet Cardiac/Consistent CHO Height 5 ft 6 in Weight 90.7 kg [place] Body Weight (kg) 64.54 BMI 32.3 Weight Status Obese Subjective/Other Information RD consulted for diet education. Pt's BP was 161/ 104 upon admission. Pt did not report any S/S of hyperglycemia upon admission. General surgery recommends CT scan of abdomen/pelvis to r/o hernia with incarceration; no abscess detected. Burn Absent Trauma Absent Minimum of two criteria No Is patient on ventilator? No Is Patient Ambulatory and/or Out of Bed Yes REE-([facility]-ambulatory/OOB) [ 2235.675 [id number]] Kcal/Kg value to use for calculation 20 Approximate Energy Requirements Using 1814 kcal/Kg Calculation Used for Recommendations Kcal/kg Additional Notes Pro needs 0.8-1g/kg adjBW: 62- 78g/day Fluid needs 1ml/kcal Nutrition Intervention Follow-Up By: 02/01/22 Additional Comments F/U: intakes, diet education needs (BG and BP control)
[2022-01-30] MEDS: hydrALAZINE 20 MG/1 ML INJ IV PRN ×2 (11:42→22:30)
--- NOTE | 2022-01-30 12:18 | Anesthesia Consultation ---
Anesthesia Consult and Med Hx Date of service: 01/30/22 - Airway Anesthetic Teeth Evaluation: Good (missing #5) ROM Head & Neck: Adequate Mental/Hyoid Distance: Adequate Mallampati Class: Class II Intubation Access Assessment: Probably Good - Pulmonary Exam CTA: Yes - Cardiac Exam Cardiac Exam: RRR - Pre-Operative Health Status ASA Pre-Surgery Classification: ASA3 Proposed Anesthetic Plan: General - Pulmonary Hx Smoking: No Hx Asthma: No Hx Sleep Apnea: No - Cardiovascular System Hx Hypertension: Yes Hx Heart Attack/AMI: No - Central Nervous System Hx Neuromuscular Disorder: No Hx Psychiatric Problems: No - Gastrointestinal Hx Gastroesophageal Reflux Disease: No - Endocrine Hx Renal Disease: No Hx Liver Disease: No Hx Non-Insulin Dependent Diabetes: Yes Hx Thyroid Disease: No - Hematic Hx Anemia: No Hx Sickle Cell Disease: No - Other Systems Hx Alcohol Use: No Hx Substance Use: No Hx Cancer: No Hx Obesity: Yes (BMI 32) - Additional Comments Anesthesia Medical History Comments: no hx of anesthetic complications
--- NOTE | 2022-01-30 12:20 | Anesthesia Day of Surgery ---
Anesthesia Day of Surgery - Day of Surgery Patient Examined: Yes Patient H&P Reviewed: Yes Patient is NPO: Yes
[2022-01-30] MEDS ORDERED: HYDROGEN PEROXIDE 118 ML SOLUTION ONE (13:42)
[2022-01-30] MEDS ORDERED: LIDOCAINE MPF (2%) 20 MG/1 ML VIAL 5 ML ONE (13:54)
[2022-01-30] MEDS ORDERED: MIDAZOLAM 2 MG/2 ML INJ ONE (13:54)
[2022-01-30] MEDS ORDERED: propofoL 200 MG/20 ML VIAL IV ONE (13:54)
[2022-01-30] MEDS ORDERED: fentaNYL 100 MCG/2 ML INJ ONE (13:54)
[2022-01-30] MEDS ORDERED: LACTATED RINGERS 1,000 ML ONE (13:58)
--- NOTE | 2022-01-30 14:29 | Progress Note ---
Assessment and Plan Cultures: Blood culture no growth so far A/P: 38-year-old man past medical history diabetes, obesity now with: #Acute sepsis: Present with tachycardia and leukocytosis. Secondary to right groin cellulitis #Right groin cellulitis: No evidence of gas or abscess on CT. Continue treatment for cellulitis. If no improvement may need reevaluation with CT to evaluate for development of abscess. #Diabetes: tight glycemic control for best outcomes. #Obesity Recs: -Continue vancomycin goal trough 10-20 -Trend white count -Follow-up cultures -If no improvement in white count or symptoms, may need repeat CT next couple days -pending OR today? please obtain cultures Thank you for the consult, we will continue to follow. Nelia Kilgoer MD [facility] ([facility]) O: [phone] F: [phone] Subjective Date of service: 01/30/22 Interval history: Afebrile, white count improving. Objective - Exam Narrative Exam: Physical Exam: Constitutional: Alert, cooperative. No acute distress Head, Ears, Nose: Normocephalic, atraumatic. External ears, nose normal Eyes: Conjunctivae/corneas clear. No icterus. No ptosis. Neck: Supple, no meningeal signs Oral: dentition fair, no thrush Cardiovascular: S1, S2 normal. Respiratory: Good air entry, clear to auscultation bilaterally GI: Soft, non-tender; bowel sounds normal. No peritoneal signs. Musculoskeletal: Right groin scrotum cellulitis Skin: No rash or abscess Hem/Lymphatic: No palpable cervical or supraclavicular nodes. No lymphangitis Psych: Mood ok. Affect normal Neurological: Awake, alert, oriented. No gross abnormality - Constitutional Vitals: Vital Signs Temp Pulse Resp BP Pulse Ox 99.3 F 127 H 20 170/99 96 01/29/22 20:33 01/29/22 20:33 01/29/22 20:33 01/29/22 20:33 01/30/22 08:15 Temperature -Last 24 Hours Temperature 99.3 F Temperature 99.4 F - Labs CBC & Chem 7: 01/30/22 04:49 01/30/22 04:49 Labs: Abnormal lab results 01/29/22 01/29/22 01/30/22 Range/Units 17:24 20:35 04:49 WBC 12.4 H (4.5-11.0) K/mm3 RBC 5.14 H (3.65-5.03) M/mm3 MCV 82 L (84-94) fl MCH 27 L (28-32) pg Lymph % (Auto) 11.7 L (13.4-35.0) % [place] % (Auto) 8.9 H (0.0-7.3) % [place] # (Auto) 1.1 H (0.0-0.8) K/mm3 Seg Neutrophils % 77.8 H (40.0-70.0) % Seg Neutrophils # 9.6 H (1.8-7.7) K/mm3 Carbon Dioxide (22-30) mmol/L Creatinine (0.8-1.3) mg/dL Glucose (75-100) mg/dL POC Glucose 258 H 314 H (70-105) mg/dL 01/30/22 01/30/22 01/30/22 Range/Units 04:49 07:14 11:11 WBC (4.5-11.0) K/mm3 RBC (3.65-5.03) M/mm3 MCV (84-94) fl MCH (28-32) pg Lymph % (Auto) (13.4-35.0) % [place] % (Auto) (0.0-7.3) % [place] # (Auto) (0.0-0.8) K/mm3 Seg Neutrophils % (40.0-70.0) % Seg Neutrophils # (1.8-7.7) K/mm3 Carbon Dioxide 20 L (22-30) mmol/L Creatinine 0.7 L (0.8-1.3) mg/dL Glucose 197 H (75-100) mg/dL POC Glucose 199 H 317 H (70-105) mg/dL
[2022-01-30] MEDS ORDERED: BUPIVACAINE/PF (0.25%) 2.5 MG/ML 30 ML VIAL INFILTRATI ONE ×2 (14:46→14:47)
[2022-01-30] MEDS ORDERED: SODIUM CHLORIDE 0.9% IRR 1,500 ML BOTTLE IR ONE (14:47)
[2022-01-30] MEDS ORDERED: HYDROmorphone 1 MG/1 ML INJ ONE (14:48)
--- NOTE | 2022-01-30 15:40 | Operative Report ---
Operative Report Operative Report: Date of procedure: 01/30/2022 Preop diagnosis: Abscess of right groin Postop diagnosis: Same Procedure: Drainage of abscess, biopsy of right groin skin leison Surgeon: Dr. Reza Anesthesia: General endotracheal anesthesia Estimated blood loss: Minimal Specimen: Gram stain and culture sensitivity, skin biopsy Findings: This is a 46-year-old patient with an abscess of the right groin. He was taken to the OR timeouts are completed consents on the chart. He is under general anesthesia. The area of concern is prepped with Betadine draped in a sterile fashion. The area of fluctuance is noted and a 1 cm cruciate incision is made. The wound is probed and the abscess is noted to extend 5 cm away from the initial cruciate incision. A second incision is made 1 cm in length. The area overlying the abscess is an unusual skin lesion this is biopsied. The Mikel is passed from 1 incision to the other and tied to itself. The wound is irrigated with copious amounts of saline. Sterile dressing is placed on this.
[2022-01-30] MEDS: HYDROmorphone 1 MG/1 ML INJ IV PRN ×2 (15:49→16:04)
--- NOTE | 2022-01-30 16:41 | Post Anesthesia Evaluation ---
- Post Anesthesia Evaluation Patient Participated: Yes Airway Patent: Yes Stable Respiratory Function: Yes Nausea/Vomiting: No Temp > 96.8F: Yes Pain Manageable: Yes Adequeate Hydration: Yes Anesthesia Complications: No
[2022-01-31] MEDS: VANCOMYCIN 1,500 MG in SODIUM CHLORIDE 0.9% 500 ML 500 ML IV SCH ×2 (00:29→11:32)
[2022-01-31] MEDS: ACETAMINOPHEN 325 MG TAB PO PRN (02:19)
[2022-01-31] MEDS: HEPARIN 5,000 UNIT/1 ML VIAL SUB-Q SCH ×3 (06:15→21:54)
--- NOTE | 2022-01-31 07:04 | Progress Note ---
Assessment and Plan his is a 46-year-old gentleman with complaints of about a weeks duration of right groin pain and swelling. He denies any pre-existing swelling in the area he is not aware of any hernias in the area. Patient is admitted with cellulitis to the right scrotum right groin area there is a small open area in the crease between the scrotum and the thigh. Examination in the room yesterday showed purulent drainage further posteriorly closer to the perianal location. Patient is status post I&D of abscess yesterday with placement of drain begin wound irrigations. Patient is cleared for discharge today with follow-up in 1 week in my office. Subjective Date of service: 01/31/22 Patient Reports: Positive: no new complaints, still having pain Narrative: Patient is status post I&D of abscess yesterday with placement of drain begin wound irrigations. Patient is cleared for discharge today with follow-up in 1 week in my office. Objective Vital Signs - 12hr 01/30/22 01/30/22 01/30/22 21:19 22:00 22:30 Temperature 98.6 F Pulse Rate 91 H 91 H Respiratory 18 Rate Blood Pressure 157/106 157/106 O2 Sat by Pulse 96 98 Oximetry 01/31/22 01/31/22 01/31/22 02:19 03:19 04:28 Temperature 98.6 F Pulse Rate 89 Respiratory 18 20 18 Rate Blood Pressure 183/111 O2 Sat by Pulse 95 Oximetry - Labs 01/30/22 04:49 01/30/22 04:49
--- NOTE | 2022-01-31 09:08 | Discharge Summary ---
Providers - Providers Date of Admission: 01/29/22 03:18 Date of discharge: 01/31/22 Attending physician: TREVOR BENITEZ 01/29/22 03:18 Consult to Physician [CONS] Routine Comment: Consulting Provider: VERNON FLORENTINO Physician Instructions: Reason For Exam: Right inguinal Cellulitis, ?Abscess 01/29/22 03:22 Consult to Dietitian/Nutrition [CONS] Routine Physician Instructions: Reason For Exam: Reason for Consult: Diet education 01/29/22 08:06 Consult to Wound/ET Nurse [CONS] Routine Reason For Exam: wound eval 01/29/22 08:34 Consult to Physician [CONS] Routine Comment: Consulting Provider: BRISEIDA NIXON Physician Instructions: Reason For Exam: right groin cellulitis Primary care physician: KEG INSPECTOR Hospitalization Reason for admission: Right groin cellulitis Condition: Stable Hospital course: 46-year-old male with known history of diabetes mellitus presenting to the emergency room complaining of swelling redness and 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 Work-up in the emergency room revealed a leukocytosis of 21.3. Blood glucose of 278. CT of the abdomen and pelvis reveals right inguinal, scrotal and perineal cellulitis without identification of an associated complication. Patient has been commenced on empiric IV antibiotics for cellulitis. The patient was admitted with diagnosis below: Sepsis. Patient meets criteria given the leukocytosis, tachycardia and diagnosis of cellulitis right groin cellulitis Diabetes mellitus type 2, uncontrolled Obesity Hospital course: 01/29/2022. Continue with IV antibiotics and await ID consultation. Continue tight glycemic control to promote wound healing. Follow-up CT scan of the abdomen and pelvis per surgery recommendations 01/30/2022. Continue vancomycin per ID recommendations. We will follow-up culture results. Testicular ultrasound shows mild scrotal edema and small amount of free fluid. Repeat CT scan shows no new changes 01/31/2022. Surgery reported patient has some purulent drainage in the perineal location. Patient underwent I&D of abscess yesterday and placement of drain and wound irrigations. Surgery cleared the patient for discharge today with follow-up in 1 week in general surgeon office. ID recommends Bactrim DS every 12 hours and Keflex 500 every 6 hours for 10 days. Dedicated discharge time 35 minutes Disposition: HOME / SELF CARE / HOMELESS Final Discharge Diagnosis (Prints w/discharge instructions): Sepsis. Patient meets criteria given the leukocytosis, tachycardia and diagnosis of cellulitis. right groin cellulitis. Diabetes mellitus type 2, uncontrolled. Obesity Core Measure Documentation - Palliative Care Palliative Care/ Comfort Measures: Not Applicable - Core Measures Any of the following diagnoses?: none Exam - Constitutional Vitals: Temp Pulse Resp BP Pulse Ox 98.6 F 89 18 183/111 95 01/31/22 04:01/31/22 04:01/31/22 04:01/31/22 04:01/31/22 04:28 General appearance: Present: no acute distress, well-nourished - EENT Eyes: Present: PERRL ENT: hearing intact, clear oral mucosa - Neck Neck: Present: supple, normal ROM - Respiratory Respiratory effort: normal Respiratory: bilateral: CTA - Cardiovascular Heart Sounds: Present: S1 & S2. Absent: rub, click - Extremities Extremities: pulses symmetrical, No edema Peripheral Pulses: within normal limits - Abdominal General gastrointestinal: Present: soft, non-tender, non-distended, normal bowel sounds Male genitourinary: Present: normal - Integumentary Integumentary: Present: clear, warm, dry - Musculoskeletal Musculoskeletal: gait normal, strength equal bilaterally - Psychiatric Psychiatric: appropriate mood/affect, intact judgment & insight - Neurologic Neurologic: CNII-XII intact, moves all extremities Plan Activity: advance as tolerated Weight Bearing Status: Weight Bear as Tolerated Diet: regular Wound: per your surgeon's advice Follow up with: NASIMA MARKS MD [Primary Care Provider] - 3-5 Days VERNON FLORENTINO MD [Staff Physician] - 7 Days BRISEIDA NIXON MD [Staff Physician] - 7 Days Prescriptions: Sulfamethoxazole/Trimethoprim [Bactrim DS TAB] 1 each PO BID #20 tab-cap cephALEXin [Keflex] 500 mg PO Q6HR #40 capsule oxyCODONE /ACETAMINOPHEN [Percocet 5/325] 1 tab PO Q4HR #10 tab NIFEdipine XL [Procardia Xl] 30 mg PO BID #60 tablet
[2022-01-31] MEDS: hydrALAZINE 20 MG/1 ML INJ IV PRN ×2 (09:19→15:25)
[2022-01-31] MEDS: INSULIN REGULAR, HUMAN 100 UNITS/1 ML SUB-Q SCH ×4 (09:20→22:14)
--- NOTE | 2022-01-31 09:23 | Progress Note ---
Assessment and Plan Cultures: Blood culture no growth so far A/P: 38-year-old man past medical history diabetes, obesity now with: #Acute sepsis: Present with tachycardia and leukocytosis. Secondary to right groin cellulitis #Right groin cellulitis: No evidence of gas or abscess on CT. Continue treatment for cellulitis. If no improvement may need reevaluation with CT to evaluate for development of abscess. #Diabetes: tight glycemic control for best outcomes. #Obesity Recs: -Continue vancomycin goal trough 10-20 -Trend white count -Follow-up cultures -Can DC on Bactrim DS q12h and Keflex 500mg q6h for 10 days. -Follow up in clinic in 1 week to review cultures Thank you for the consult, we will continue to follow. Nelia Kilgore MD [facility] ([facility]) O: [phone] F: [phone] Subjective Date of service: 01/31/22 Interval history: Afebrile, now status post I&D of groin abscess. Objective - Exam Narrative Exam: Physical Exam: Constitutional: Alert, cooperative. No acute distress Head, Ears, Nose: Normocephalic, atraumatic. External ears, nose normal Eyes: Conjunctivae/corneas clear. No icterus. No ptosis. Neck: Supple, no meningeal signs Oral: dentition fair, no thrush Cardiovascular: S1, S2 normal. Respiratory: Good air entry, clear to auscultation bilaterally GI: Soft, non-tender; bowel sounds normal. No peritoneal signs. Musculoskeletal: Right groin scrotum cellulitis Skin: No rash or abscess Hem/Lymphatic: No palpable cervical or supraclavicular nodes. No lymphangitis Psych: Mood ok. Affect normal Neurological: Awake, alert, oriented. No gross abnormality - Constitutional Vitals: Vital Signs Temp Pulse Resp BP Pulse Ox 98.6 F 104 H 18 183/127 95 01/31/22 04:28 01/31/22 09:19 01/31/22 04:28 01/31/22 09:19 01/31/22 04:28 Temperature -Last 24 Hours Temperature 98.6 F Temperature 98.6 F Temperature 99.1 F Temperature 98.2 F Temperature 97.2 F Temperature 99.0 F - Labs CBC & Chem 7: 01/30/22 04:49 01/30/22 04:49 Labs: Abnormal lab results 01/30/22 01/30/22 01/30/22 Range/Units 11:11 15:18 21:21 POC Glucose 317 H 187 H 291 H (70-105) mg/dL
[2022-01-31] MEDS: NIFEdipine XL 30 MG TAB PO SCH ×2 (10:20→21:53)
[2022-01-31] MEDS: MORPHINE 2 MG/1 ML INJ IV PRN (11:24)
[2022-01-31 12:49] LABS: Basophils % (Auto) 0.4 % (0.0-1.8); Eosinophils # (Auto) 0.1 K/mm3 (0.0-0.4); Hematocrit 44.8 % (35.5-45.6); Hemoglobin 14.8 gm/dl (11.8-15.2); Lymphocytes # (Auto) 0.9 K/mm3 (1.2-5.4); Lymphocytes % (Auto) 9.3 % (13.4-35.0); Mean Corpuscular HGB Conc 33 % (32-34); Mean Corpuscular Volume 82 fl (84-94); Monocytes # (Auto) 0.6 K/mm3 (0.0-0.8); Monocytes % (Auto) 6.9 % (0.0-7.3); Platelet Count 278 K/mm3 (140-440); Red Blood Count 5.45 M/mm3 (3.65-5.03); Red Cell Distribution Width 13.9 % (13.2-15.2)
--- NOTE | 2022-01-31 12:55 | Post Anesthesia Evaluation ---
- Post Anesthesia Evaluation Patient Participated: Yes Airway Patent: Yes Stable Respiratory Function: Yes Nausea/Vomiting: No Temp > 96.8F: Yes Pain Manageable: Yes Adequeate Hydration: Yes Anesthesia Complications: No Block Receding Appropriately: Not Applicable Patient on Ventilator: No
[2022-01-31 13:21] LABS: BUN/Creatinine Ratio 13; Blood Urea Nitrogen 10 mg/dL (9-20); Calcium 9.1 mg/dL (8.4-10.2); Hemolysis Index 6
[2022-01-31] MEDS ORDERED: LISINOPRIL 40 MG TAB PO ONE (13:55)
[2022-02-01] MEDS: VANCOMYCIN 1,500 MG in SODIUM CHLORIDE 0.9% 500 ML 500 ML IV SCH ×2 (00:36→12:03)
[2022-02-01] MEDS: HEPARIN 5,000 UNIT/1 ML VIAL SUB-Q SCH (05:50)
[2022-02-01 06:05] LABS: Basophils # (Auto) 0.1 K/mm3 (0.0-0.1); Basophils % (Auto) 0.9 % (0.0-1.8); Eosinophils # (Auto) 0.1 K/mm3 (0.0-0.4); Eosinophils % (Auto) 1.4 % (0.0-4.3); Hematocrit 44.2 % (35.5-45.6); Hemoglobin 15.4 gm/dl (11.8-15.2); Lymphocytes # (Auto) 1.8 K/mm3 (1.2-5.4); Lymphocytes % (Auto) 20.1 % (13.4-35.0); Mean Corpuscular HGB Conc 35 % (32-34); Mean Corpuscular Volume 81 fl (84-94); Monocytes # (Auto) 0.8 K/mm3 (0.0-0.8); Monocytes % (Auto) 9.1 % (0.0-7.3); Platelet Count 317 K/mm3 (140-440); Red Blood Count 5.49 M/mm3 (3.65-5.03); Red Cell Distribution Width 13.6 % (13.2-15.2)
[2022-02-01 06:10] LABS: Blood Urea Nitrogen 9 mg/dL (9-20); Calcium 9.3 mg/dL (8.4-10.2); Hemolysis Index 4
[2022-02-01 06:14] LABS: BUN/Creatinine Ratio 13
[2022-02-01] MEDS: INSULIN REGULAR, HUMAN 100 UNITS/1 ML SUB-Q SCH (08:30)
--- NOTE | 2022-02-01 09:05 | Progress Note ---
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 Work-up in the emergency room revealed a leukocytosis of 21.3. Blood glucose of 278. CT of the abdomen and pelvis reveals right inguinal, scrotal and perineal cellulitis without identification of an associated complication. Patient has been commenced on empiric IV antibiotics for cellulitis. The patient was admitted with diagnosis below: Sepsis. Patient meets criteria given the leukocytosis, tachycardia and diagnosis of cellulitis right groin cellulitis Diabetes mellitus type 2, uncontrolled Obesity 01/29/2022. Continue with IV antibiotics and await ID consultation. Continue tight glycemic control to promote wound healing. Follow-up CT scan of the abdomen and pelvis per surgery recommendations 01/30/2022. Continue vancomycin per ID recommendations. We will follow-up culture results. Testicular ultrasound shows mild scrotal edema and small amount of free fluid. Repeat CT scan shows no new changes 01/31/2022. Patient prepared for discharge today however patient exhibiting ac celerated hypertension. Home medication of lisinopril added along with Procardia 30 mg twice daily. If blood pressure stabilizes, patient will discharge home today History Interval history: No new issues overnight Hospitalist Physical - Constitutional Vitals: Temp Pulse Resp BP Pulse Ox 98.6 F 107 H 20 156/99 96 02/01/22 06:11 02/01/22 06:11 02/01/22 06:11 02/01/22 06:11 02/01/22 06:11 General appearance: Present: no acute distress, well-nourished - EENT Eyes: Present: PERRL, EOM intact ENT: hearing intact, clear oral mucosa, dentition normal - Neck Neck: Present: supple, normal ROM - Respiratory Respiratory effort: normal Respiratory: bilateral: CTA - Cardiovascular Rhythm: regular Heart Sounds: Present: S1 & S2. Absent: gallop, rub - Extremities Extremities: no ischemia, No edema, Full ROM - Abdominal General gastrointestinal: soft, non-tender, non-distended, normal bowel sounds - Integumentary Integumentary: Present: clear, warm, dry - Neurologic Neurologic: CNII-XII intact, moves all extremities Results - Labs CBC & Chem 7: 02/01/22 05:02 02/01/22 05:02 Labs: Laboratory Last Values WBC 9.2 K/mm3 (4.5-11.0) 02/01/22 05:02 RBC 5.49 M/mm3 (3.65-5.03) H 02/01/22 05:02 Hgb 15.4 gm/dl (11.8-15.2) H 02/01/22 05:02 Hct 44.2 % (35.5-45.6) 02/01/22 05:02 MCV 81 fl (84-94) L 02/01/22 05:02 MCH 28 pg (28-32) 02/01/22 05:02 MCHC 35 % (32-34) H 02/01/22 05:02 RDW 13.6 % (13.2-15.2) 02/01/22 05:02 Plt Count 317 K/mm3 (140-440) 02/01/22 05:02 Lymph % (Auto) 20.1 % (13.4-35.0) 02/01/22 05:02 [place] % (Auto) 9.1 % (0.0-7.3) H 02/01/22 05:02 Eos % (Auto) 1.4 % (0.0-4.3) 02/01/22 05:02 Baso % (Auto) 0.9 % (0.0-1.8) 02/01/22 05:02 Lymph # (Auto) 1.8 K/mm3 (1.2-5.4) 02/01/22 05:02 [place] # (Auto) 0.8 K/mm3 (0.0-0.8) 02/01/22 05:02 Eos # (Auto) 0.1 K/mm3 (0.0-0.4) 02/01/22 05:02 Baso # (Auto) 0.1 K/mm3 (0.0-0.1) 02/01/22 05:02 Add Manual Diff Complete 01/28/22 23:18 Total Counted 100 01/28/22 23:18 Seg Neutrophils % 68.5 % (40.0-70.0) 02/01/22 05:02 Seg Neuts % (Manual) 88.0 % (40.0-70.0) H 01/28/22 23:18 Band Neutrophils % 2.0 % 01/28/22 23:18 Lymphocytes % (Manual) 6.0 % (13.4-35.0) L 01/28/22 23:18 Reactive Lymphs % (Man) 0 % 01/28/22 23:18 Monocytes % (Manual) 4.0 % (0.0-7.3) 01/28/22 23:18 Eosinophils % (Manual) 0 % (0.0-4.3) 01/28/22 23:18 Basophils % (Manual) 0 % (0.0-1.8) 01/28/22 23:18 Metamyelocytes % 0 % 01/28/22 23:18 Myelocytes % 0 % 01/28/22 23:18 Promyelocytes % 0 % 01/28/22 23:18 Blast Cells % 0 % 01/28/22 23:18 Nucleated RBC % Not Reportable 01/28/22 23:18 Seg Neutrophils # 6.3 K/mm3 (1.8-7.7) 02/01/22 05:02 Seg Neutrophils # Man 18.7 K/mm3 (1.8-7.7) H 01/28/22 23:18 Band Neutrophils # 0.4 K/mm3 01/28/22 23:18 Lymphocytes # (Manual) 1.3 K/mm3 (1.2-5.4) 01/28/22 23:18 Abs React Lymphs (Man) 0.0 K/mm3 01/28/22 23:18 Monocytes # (Manual) 0.9 K/mm3 (0.0-0.8) H 01/28/22 23:18 Eosinophils # (Manual) 0.0 K/mm3 (0.0-0.4) 01/28/22 23:18 Basophils # (Manual) 0.0 K/mm3 (0.0-0.1) 01/28/22 23:18 Metamyelocytes # 0.0 K/mm3 01/28/22 23:18 Myelocytes # 0.0 K/mm3 01/28/22 23:18 Promyelocytes # 0.0 K/mm3 01/28/22 23:18 Blast Cells # 0.0 K/mm3 01/28/22 23:18 WBC Morphology Not Reportable 01/28/22 23:18 Hypersegmented Neuts Not Reportable 01/28/22 23:18 Hyposegmented Neuts Not Reportable 01/28/22 23:18 Hypogranular Neuts Not Reportable 01/28/22 23:18 Smudge Cells Not Reportable 01/28/22 23:18 Toxic Granulation Not Reportable 01/28/22 23:18 Toxic Vacuolation Not Reportable 01/28/22 23:18 Dohle Bodies Not Reportable 01/28/22 23:18 Pelger-Huet Anomaly Not Reportable 01/28/22 23:18 Елена Rods Not Reportable 01/28/22 23:18 Platelet Estimate Consistent w auto 01/28/22 23:18 Clumped Platelets Not Reportable 01/28/22 23:18 Plt Clumps, EDTA Not Reportable 01/28/22 23:18 Large Platelets Not Reportable 01/28/22 23:18 Giant Platelets Not Reportable 01/28/22 23:18 Platelet Satelliting Not Reportable 01/28/22 23:18 Plt Morphology Comment Not Reportable 01/28/22 23:18 RBC Morphology Normal 01/28/22 23:18 Dimorphic RBCs Not Reportable 01/28/22 23:18 Polychromasia Not Reportable 01/28/22 23:18 Hypochromasia Not Reportable 01/28/22 23:18 Poikilocytosis Not Reportable 01/28/22 23:18 Anisocytosis Not Reportable 01/28/22 23:18 Microcytosis Not Reportable 01/28/22 23:18 Macrocytosis Not Reportable 01/28/22 23:18 Spherocytes Not Reportable 01/28/22 23:18 Pappenheimer Bodies Not Reportable 01/28/22 23:18 Sickle Cells Not Reportable 01/28/22 23:18 Target Cells Not Reportable 01/28/22 23:18 Tear Drop Cells Not Reportable 01/28/22 23:18 Ovalocytes Not Reportable 01/28/22 23:18 Helmet Cells Not Reportable 01/28/22 23:18 [place] Bodies Not Reportable 01/28/22 23:18 [place] Rings Not Reportable 01/28/22 23:18 [place] Cells Not Reportable 01/28/22 23:18 Bite Cells Not Reportable 01/28/22 23:18 Crenated Cell Not Reportable 01/28/22 23:18 Elliptocytes Not Reportable 01/28/22 23:18 Acanthocytes (Spur) Not Reportable 01/28/22 23:18 Rouleaux Not Reportable 01/28/22 23:18 Hemoglobin C Crystals Not Reportable 01/28/22 23:18 Schistocytes Not Reportable 01/28/22 23:18 Malaria parasites Not Reportable 01/28/22 23:18 Rod Bodies Not Reportable 01/28/22 23:18 Hem Pathologist Commnt No 01/28/22 23:18 Sodium 139 mmol/L (137-145) 02/01/22 05:02 Potassium 3.7 mmol/L (3.6-5.0) 02/01/22 05:02 Chloride 101.7 mmol/L (98-107) 02/01/22 05:02 Carbon Dioxide 20 mmol/L (22-30) L 02/01/22 05:02 Anion Gap 21 mmol/L 02/01/22 05:02 BUN 9 mg/dL (9-20) 02/01/22 05:02 Creatinine 0.7 mg/dL (0.8-1.3) L 02/01/22 05:02 Estimated GFR > 60 ml/min 02/01/22 05:02 BUN/Creatinine Ratio 13 % 02/01/22 05:02 Glucose 156 mg/dL (75-100) H 02/01/22 05:02 POC Glucose 200 mg/dL (70-105) H 01/31/22 21:58 Lactic Acid 1.40 mmol/L (0.7-2.0) 01/29/22 02:37 Calcium 9.3 mg/dL (8.4-10.2) 02/01/22 05:02 Total Bilirubin 0.70 mg/dL (0.1-1.2) 01/28/22 23:18 AST 9 units/L (5-40) 01/28/22 23:18 ALT 11 units/L (7-56) 01/28/22 23:18 Alkaline Phosphatase 131 units/L (35-129) H 01/28/22 23:18 Total Protein 6.7 g/dL (6.3-8.2) 01/28/22 23:18 Albumin 3.7 g/dL (3.9-5) L 01/28/22 23:18 Albumin/Globulin Ratio 1.2 % 01/28/22 23:18 Vancomycin Trough 9.9 ug/mL (5.0-20.0) 01/30/22 23:53 Microbiology: Microbiology 01/28/22 23:18 Peripheral/Venous Blood Culture - Preliminary NO GROWTH AFTER 72 HOURS 01/28/22 23:18 Peripheral/Venous Blood Culture - Preliminary NO GROWTH AFTER 72 HOURS 01/30/22 Unknown Groin Surgical Culture - Final Beta Hemolytic Strep Group B Caldera/IV: Voiding Method Urinal Active Medications - Current Medications Current Medications: Generic Name Dose Route Start Last Admin Trade Name Freq PRN Reason Stop Dose Admin Acetaminophen 650 mg 01/29/22 03:18 01/31/22 02:19 Acetaminophen 325 Mg Tab PO 650 mg Q4H PRN Administration Pain MILD(1-3)/Fever >100.5/RODRIGUES Dextrose 50 ml 01/29/22 03:18 Dextrose 50% In Water (25gm) 50 Ml Syringe IV Q30MIN PRN Hypoglycemia Protocol Heparin Sodium (Porcine) 5,000 unit 01/29/22 14:00 02/01/22 05:50 Heparin 5,000 Unit/1 Ml Vial SUB-Q 5,000 unit Q8HR STEPHANIE Administration Hydralazine HCl 10 mg 01/29/22 05:48 01/31/22 15:25 Hydralazine 20 Mg/1 Ml Inj IV 10 mg Q4HR PRN Administration elevated blood pressure Hydromorphone HCl 0.25 mg 01/28/22 23:07 01/29/22 06:28 Hydromorphone 1 Mg/1 Ml Inj IV 0.25 mg Q4H PRN Administration Pain, Moderate (4-6) Vancomycin HCl 1,500 mg/ 530 mls @ 333.333 mls/hr 01/29/22 12:00 02/01/22 00:36 Sodium Chloride IV 333.333 mls/hr Q12H STEPHANIE Administration Insulin Human Regular 0 units 01/29/22 07:30 01/31/22 22:14 Insulin Regular, Human 100 Units/1 Ml SUB-Q 3 units ACHS STEPHANIE Administration Protocol Magnesium Hydroxide 30 ml 01/29/22 03:18 Magnesium Hydroxide (Mom) Oral Liqd Udc PO Q4H PRN Constipation Morphine Sulfate 2 mg 01/29/22 03:18 01/31/22 11:24 Morphine 2 Mg/1 Ml Inj IV 2 mg Q4H PRN Administration Pain, Moderate (4-6) Morphine Sulfate 4 mg 01/29/22 03:18 Morphine 4 Mg/1 Ml Inj IV Q4H PRN Pain , Severe (7-10) Nifedipine 30 mg 01/31/22 10:00 01/31/22 21:53 Nifedipine Xl 30 Mg Tab PO 30 mg BID STEPHANIE Administration Ondansetron HCl 4 mg 01/29/22 03:18 Ondansetron 4 Mg/2 Ml Inj IV Q8H PRN Nausea And Vomiting Sodium Chloride 10 ml 01/29/22 10:00 01/31/22 21:55 Sodium Chloride 0.9% 10 Ml Flush Syringe IV 10 ml BID STEPHANIE Administration Sodium Chloride 10 ml 01/29/22 03:18 Sodium Chloride 0.9% 10 Ml Flush Syringe IV PRN PRN LINE FLUSH Nutrition/Malnutrition Assess - Dietary Evaluation Nutrition/Malnutrition Findings: Nutrition Notes Start: 01/29/22 10:39 Freq: Status: Active Protocol: Document 01/29/22 10:39 ROSENDO (Rec: 01/29/22 10:45 [facility] [id number]) Nutrition Notes Need for Assessment generated from: MD Order,Education Initial or Follow up Brief Note Current Diagnosis Diabetes Other Pertinent Diagnosis Cellulitis of (R) groin Current Diet Cardiac/Consistent CHO Height 5 ft 6 in Weight 90.7 kg [place] Body Weight (kg) 64.54 BMI 32.3 Weight Status Obese Subjective/Other Information RD consulted for diet education. Pt's BP was 161/ 104 upon admission. Pt did not report any S/S of hyperglycemia upon admission. General surgery recommends CT scan of abdomen/pelvis to r/o hernia with incarceration; no abscess detected. Burn Absent Trauma Absent Minimum of two criteria No Is patient on ventilator? No Is Patient Ambulatory and/or Out of Bed Yes REE-([facility]-ambulatory/OOB) [ 2235.675 NUTR.[id number]] Kcal/Kg value to use for calculation 20 Approximate Energy Requirements Using 1814 kcal/Kg Calculation Used for Recommendations Kcal/kg Additional Notes Pro needs 0.8-1g/kg adjBW: 62- 78g/day Fluid needs 1ml/kcal Nutrition Intervention Follow-Up By: 02/01/22 Additional Comments F/U: intakes, diet education needs (BG and BP control)
--- NOTE | 2022-02-01 09:15 | Progress Note ---
Assessment and Plan Patient is status post I&D of abscess yesterday with placement of drain begin wound irrigations. Patient is cleared for discharge today with follow-up in 1 week in my office. Subjective Date of service: 02/01/22 Patient Reports: Positive: no new complaints, feels better Objective Vital Signs - 12hr 01/31/22 01/31/22 02/01/22 22:00 23:14 06:11 Temperature 98.4 F 98.6 F Pulse Rate 114 H 107 H Respiratory 20 20 Rate Blood Pressure 143/104 156/99 O2 Sat by Pulse 98 97 96 Oximetry - Labs 02/01/22 05:02 02/01/22 05:02 Diabetes panel 01/31/22 02/01/22 Range/Units 12:15 05:02 Sodium 139 139 (137-145) mmol/L Potassium 4.1 3.7 (3.6-5.0) mmol/L Chloride 102.3 101.7 (98-107) mmol/L Carbon Dioxide 20 L 20 L (22-30) mmol/L BUN 10 9 (9-20) mg/dL Creatinine 0.8 0.7 L (0.8-1.3) mg/dL Glucose 333 H 156 H (75-100) mg/dL Calcium 9.1 9.3 (8.4-10.2) mg/dL Calcium panel 01/31/22 02/01/22 Range/Units 12:15 05:02 Calcium 9.1 9.3 (8.4-10.2) mg/dL Pituitary panel 01/31/22 02/01/22 Range/Units 12:15 05:02 Sodium 139 139 (137-145) mmol/L Potassium 4.1 3.7 (3.6-5.0) mmol/L Chloride 102.3 101.7 (98-107) mmol/L Carbon Dioxide 20 L 20 L (22-30) mmol/L BUN 10 9 (9-20) mg/dL Creatinine 0.8 0.7 L (0.8-1.3) mg/dL Glucose 333 H 156 H (75-100) mg/dL Calcium 9.1 9.3 (8.4-10.2) mg/dL Adrenal panel 01/31/22 02/01/22 Range/Units 12:15 05:02 Sodium 139 139 (137-145) mmol/L Potassium 4.1 3.7 (3.6-5.0) mmol/L Chloride 102.3 101.7 (98-107) mmol/L Carbon Dioxide 20 L 20 L (22-30) mmol/L BUN 10 9 (9-20) mg/dL Creatinine 0.8 0.7 L (0.8-1.3) mg/dL Glucose 333 H 156 H (75-100) mg/dL Calcium 9.1 9.3 (8.4-10.2) mg/dL
[2022-02-01] MEDS: NIFEdipine XL 30 MG TAB PO SCH (09:47)
--- NOTE | 2022-02-01 10:58 | Progress Note ---
Assessment and Plan Cultures: Blood culture no growth so far A/P: 38-year-old man past medical history diabetes, obesity now with: #Acute sepsis: Present with tachycardia and leukocytosis. Secondary to right groin cellulitis #Right groin cellulitis: No evidence of gas or abscess on CT. Continue treatment for cellulitis. If no improvement may need reevaluation with CT to evaluate for development of abscess. #Diabetes: tight glycemic control for best outcomes. #Obesity Recs: -Continue vancomycin goal trough 10-20 -Can DC Keflex 500mg q6h for 10 days. Thank you for the consult, we will continue to follow. Nelia Kilgore MD [facility] ([facility]) O: [phone] F: [phone] Subjective Date of service: 02/01/22 Interval history: Afebrile, normal white count. Surgical cultures with GBS Objective - Exam Narrative Exam: Physical Exam: Constitutional: Alert, cooperative. No acute distress Head, Ears, Nose: Normocephalic, atraumatic. External ears, nose normal Eyes: Conjunctivae/corneas clear. No icterus. No ptosis. Neck: Supple, no meningeal signs Oral: dentition fair, no thrush Cardiovascular: S1, S2 normal. Respiratory: Good air entry, clear to auscultation bilaterally GI: Soft, non-tender; bowel sounds normal. No peritoneal signs. Musculoskeletal: Right groin scrotum cellulitis Skin: No rash or abscess Hem/Lymphatic: No palpable cervical or supraclavicular nodes. No lymphangitis Psych: Mood ok. Affect normal Neurological: Awake, alert, oriented. No gross abnormality - Constitutional Vitals: Vital Signs Temp Pulse Resp BP Pulse Ox 98.6 F 107 H 20 156/99 96 02/01/22 06:11 02/01/22 06:11 02/01/22 06:11 02/01/22 06:11 02/01/22 06:11 Temperature -Last 24 Hours Temperature 98.6 F Temperature 98.4 F Temperature 99.3 F - Labs CBC & Chem 7: 02/01/22 05:02 02/01/22 05:02 Labs: Abnormal lab results 01/31/22 01/31/22 01/31/22 Range/Units 07:09 10:55 12:15 RBC 5.45 H (3.65-5.03) M/mm3 Hgb (11.8-15.2) gm/dl MCV 82 L (84-94) fl MCH 27 L (28-32) pg MCHC (32-34) % Lymph % (Auto) 9.3 L (13.4-35.0) % [place] % (Auto) (0.0-7.3) % Lymph # (Auto) 0.9 L (1.2-5.4) K/mm3 Seg Neutrophils % 82.4 H (40.0-70.0) % Carbon Dioxide (22-30) mmol/L Creatinine (0.8-1.3) mg/dL Glucose (75-100) mg/dL POC Glucose 202 H 313 H (70-105) mg/dL 01/31/22 01/31/22 01/31/22 Range/Units 12:15 16:25 21:58 RBC (3.65-5.03) M/mm3 Hgb (11.8-15.2) gm/dl MCV (84-94) fl MCH (28-32) pg MCHC (32-34) % Lymph % (Auto) (13.4-35.0) % [place] % (Auto) (0.0-7.3) % Lymph # (Auto) (1.2-5.4) K/mm3 Seg Neutrophils % (40.0-70.0) % Carbon Dioxide 20 L (22-30) mmol/L Creatinine (0.8-1.3) mg/dL Glucose 333 H (75-100) mg/dL POC Glucose 219 H 200 H (70-105) mg/dL 02/01/22 02/01/22 Range/Units 05:02 05:02 RBC 5.49 H (3.65-5.03) M/mm3 Hgb 15.4 H (11.8-15.2) gm/dl MCV 81 L (84-94) fl MCH (28-32) pg MCHC 35 H (32-34) % Lymph % (Auto) (13.4-35.0) % [place] % (Auto) 9.1 H (0.0-7.3) % Lymph # (Auto) (1.2-5.4) K/mm3 Seg Neutrophils % (40.0-70.0) % Carbon Dioxide 20 L (22-30) mmol/L Creatinine 0.7 L (0.8-1.3) mg/dL Glucose 156 H (75-100) mg/dL POC Glucose (70-105) mg/dL
[2022-02-01 11:17] VITALS: BP 142/93
== END 2022-02-01 12:15 | disposition home or self-care (01) | DRG 872 ==
LOC: ED 12:20 → 3A 01-29 03:18
PROVIDERS: ADMIT Internal Medicine Geriatric Medicine; ATTEND Hospitalist
PROC: 0HB9XZX Excision of Perineum Skin, External Approach, Diagnostic (ICD-10-PCS; principal; 2022-01-30)
DX: A40.1 Sepsis due to streptococcus, group B (principal); L03.314 Cellulitis of groin; R00.0 Tachycardia, unspecified; E11.9 Type 2 diabetes mellitus without complications; Z82.49 Family history of ischemic heart disease and other diseases of the circulatory system; E66.9 Obesity, unspecified; Z68.32 Body mass index [BMI] 32.0-32.9, adult
CPT/HCPCS: 36415; 74177; 80048; 80053; 80202; 82140; 82962; 85007; 85025; 87040; 87075; 87116; 88304; 93975; G0378; J3490; Q9967; J0360; J1170; J1644; J1815; J2250; J2270; J2543; J2704; J3010; J3370; J7030; J7040; J7120